=== PATIENT | female | born 1975 | race Caucasian/White ===

== ENCOUNTER 2017-08-16 22:56 | Emergency (ER) | payer MEDICARE, OTHER ==
[~2017-08-16] VITALS: Ht 157.5 cm; Wt 61.2 kg
[2017-08-17] MEDS ORDERED: KETOROLAC 60 MG/2 ML VIAL. IM ONE (00:30)
--- NOTE | 2017-08-17 00:53 | PHYS DOC ---
Adult General Chief Complaint Chief Complaint: UPPER EXTREMITY PAIN HPI HPI 42-year-old female presents the emergency department complaining of left shoulder pain. Patient states she fell and "jammed " her shoulder. There is no swelling or deformity. Patient takes [place] at home for chronic pain. She does not take any anticoagulants nor does she have any chronic bone or bleeding problems. No other injuries Review of Systems Review of Systems Constitutional: Denies fever or chills [] Eyes: Denies change in visual acuity, redness, or eye pain [] HENT: Denies nasal congestion or sore throat [] Respiratory: Denies cough or shortness of breath [] Cardiovascular: No additional information not addressed in HPI [] GI: Denies abdominal pain, nausea, vomiting, bloody stools or diarrhea [] : Denies dysuria or hematuria [] Musculoskeletal: Denies back pain or joint pain [] Integument: Denies rash or skin lesions [] Neurologic: Denies headache, focal weakness or sensory changes [] Endocrine: Denies polyuria or polydipsia [] All other systems were reviewed and found to be within normal limits, except as documented in this note. Current Medications Current Medications Current Medications Medications (Trade) Dose Ordered Sig/Haley Start Time Stop Time Status Last Admin Dose Admin Ketorolac Tromethamine (Toradol) 60 mg 1X ONCE 08/17/17 00:30 08/17/17 00:31 DC 08/17/17 00:35 60 MG Allergies Allergies Allergies Coded Allergies Type Severity Reaction Last Updated Verified doxycycline Allergy Unknown 08/17/17 Yes fentanyl Allergy Unknown 08/17/17 Yes latex Allergy Unknown 08/17/17 Yes lidocaine Allergy Unknown 08/17/17 Yes morphine Allergy Unknown 08/17/17 Yes nickel Allergy Unknown 08/17/17 Yes Physical Exam Physical Exam Well-appearing patient no acute distress. Range of motion left shoulder limited by pain. Soft tissue tenderness in the left shoulder distribution. No before meals tenderness no bony tenderness humeral head appears to be glenoid fossa clinically. No bony tenderness of the humerus elbow or forearm. No elbow effusion and no skin changes. Remainder of exam is benign Constitutional: Well developed, well nourished, no acute distress, non-toxic appearance. [] HENT: Normocephalic, atraumatic, bilateral external ears normal, oropharynx moist, no oral exudates, nose normal. [] Eyes: PERRLA, EOMI, conjunctiva normal, no discharge. [] Neck: Normal range of motion, no tenderness, supple, no stridor. [] Cardiovascular:Heart rate regular rhythm, no murmur [] Lungs & Thorax: Bilateral breath sounds clear to auscultation [] Abdomen: Bowel sounds normal, soft, no tenderness, no masses, no pulsatile masses. [] Skin: Warm, dry, no erythema, no rash. [] Back: No tenderness, no CVA tenderness. [] Extremities: No tenderness, no cyanosis, no clubbing, ROM intact, no edema. [] Neurologic: Alert and oriented X 3, normal motor function, normal sensory function, no focal deficits noted. [] Psychologic: Affect normal, judgement normal, mood normal. [] EKG EKG [] Radiology/Procedures Radiology/Procedures X-ray left elbow no acute disease interpreted by me X-ray left humerus no acute disease interpreted by me [] Course & Med Decision Making Course & Med Decision Making Pertinent Labs and Imaging studies reviewed. (See chart for details) Signs and symptoms consistent with soft tissue injury left shoulder. X-ray humerus and elbow unremarkable. Patient with no soft tissue swelling or deformity. Soft compartments and neurovascularly intact distally. Patient aware of suspicion of rotator cuff injury as well as the possibility of a nondisplaced fracture that this appears less likely clinically. Patient were critical importance of close follow-up with her primary care doctor for reevaluation and referral to orthopedics as needed. She will wear sling for comfort rest ice and elevate take anti-inflammatory medications and her narcotic home pain regimen as needed. [] Dragon Disclaimer Dragon Disclaimer This electronic medical record was generated, in whole or in part, using a voice recognition dictation system. Departure Departure: Impression: Primary Impression: Injury of left shoulder and upper arm Additional Impression: Injury of left rotator cuff Disposition: 01 HOME, SELF-CARE Condition: IMPROVED Referrals: NON,STAFF (PCP) Patient Instructions: Rotator Cuff Injury Additional Instructions: It appears that you've suffered a soft tissue injury of your left shoulder. Wear sling as needed for comfort. Avoid strenuous use of the shoulder until it' s feeling better. Remove the sling several times a day for full range of motion exercises. Take ibuprofen 800 mg every 6 hours as needed for discomfort and use your narcotic pain control regimen as needed for breakthrough pain as previously prescribed. Be aware of the possibility of a nondisplaced fracture not visible on x-ray. Follow-up with your doctor in several days for reevaluation and referral to orthopedics as needed. Problem Qualifiers JAELYN CARCAMO MD Aug 17, 2017 00:53
[2017-08-17 01:08] VITALS: BP 145/84
--- NOTE | 2017-08-17 07:48 | RAD ---
EXAM: 1. Left humerus 2 views. 2. Left elbow 3 views. HISTORY: Fall with left humeral and elbow pain. COMPARISON: None. FINDINGS: No fractures are appreciated in the left humerus. Acromioclavicular and glenohumeral alignment appear maintained. No fractures are appreciated at the left elbow. Joint spaces and alignment are maintained. There is no joint effusion. IMPRESSION: 1. No fracture or malalignment.
== END 2017-08-17 01:08 | disposition home or self-care (01) ==
LOC: ER 22:56
DX: S46.092A Other injury of muscle(s) and tendon(s) of the rotator cuff of left shoulder, initial encounter (principal); G89.29 Other chronic pain; Z88.5 Allergy status to narcotic agent; Z88.8 Allergy status to other drugs, medicaments and biological substances; Z88.4 Allergy status to anesthetic agent; Z88.1 Allergy status to other antibiotic agents; Z91.040 Latex allergy status; W19.XXXA Unspecified fall, initial encounter; Y93.89 Activity, other specified; Y92.89 Other specified places as the place of occurrence of the external cause; Y99.8 Other external cause status
CPT/HCPCS: 73060; 73080; 96372; 99284; J1885

== ENCOUNTER 2017-11-08 22:28 | Emergency (ER) | payer MEDICARE, OTHER ==
[~2017-11-08] VITALS: Ht 167.6 cm; Wt 77.1 kg
--- NOTE | 2017-11-08 23:14 | ED.ADGEN ---
Past History Past Medical History: GERD, Other Past Surgical History: Appendectomy, Cholecystectomy, Hysterectomy Adult General Chief Complaint Chief Complaint Right wrist injury HPI HPI Patient is a 42 year old right-handed fever presents with right proximal wrist pain and palmar hand pain after tripping over a metal post and falling on an outstretched right hand. Injury occurred 4 hours prior to ED arrival. Pain is moderate, worse with palpation and range of motion. No other acute injury or complaints. Previous carpal tunnel release surgery of right hand.[] Review of Systems Review of Systems Review symptoms as per history of present illness. All other review symptoms are negative. All other systems were reviewed and found to be within normal limits, except as documented in this note. Current Medications Current Medications Current Medications Medications (Trade) Dose Ordered Sig/Haley Start Time Stop Time Status Last Admin Dose Admin Ibuprofen (Motrin) 600 mg 1X ONCE 11/08/17 23:55 11/08/17 23:56 DC 11/08/17 23:45 600 MG Allergies Allergies Allergies Coded Allergies Type Severity Reaction Last Updated Verified doxycycline Allergy Unknown 08/17/17 Yes fentanyl Allergy Unknown 08/17/17 Yes latex Allergy Unknown 08/17/17 Yes lidocaine Allergy Unknown 08/17/17 Yes morphine Allergy Unknown 08/17/17 Yes nickel Allergy Unknown 08/17/17 Yes Physical Exam Physical Exam Constitutional: Well developed, well nourished, no acute distress, non-toxic appearance. [] HENT: Normocephalic, atraumatic, bilateral external ears normal, oropharynx moist, no oral exudates, nose normal. [] Extremities: Right wrist, no bruising, swelling, abrasions or deformities. Proximal wrist pain, tenderness and palmar hand pain. [] Neurologic: Alert and oriented X 3, right upper ext, no motor weakness or loss of sensation. [] Psychologic: Affect normal, judgement normal, mood normal. [] Current Patient Data Vital Signs Vital Signs Date Time Temp Pulse Resp B/P (MAP) Pulse Ox O2 Delivery O2 Flow Rate FiO2 11/08/17 23:21 98.1 90 20 97 Room Air EKG EKG [] Radiology/Procedures Radiology/Procedures [R wrist XR: No obvious displaced fracture] Course & Med Decision Making Course & Med Decision Making Pertinent Labs and Imaging studies reviewed. (See chart for details) [No obvious fracture on x-ray. No tenderness over her anatomical snuffbox. Discussed with the patient possibility of subtle nondisplaced fracture. Patient provided wrist splint. Recommendations are supportive care with PCP/orthopedic follow-up.] Final Impression Final Impression [1 right wrist injury] Problems: Dragon Disclaimer Dragon Disclaimer This electronic medical record was generated, in whole or in part, using a voice recognition dictation system. LUIS MANUEL OLIVIA DO November 08, 2017 23:14
[2017-11-08 23:21] VITALS: BP 123/80
[2017-11-08] MEDS ORDERED: IBUPROFEN 600 MG TABLET. PO ONE (23:55)
--- NOTE | 2017-11-09 09:03 | RAD ---
EXAM: Right wrist, 3 views. HISTORY: Fall. COMPARISON: None. FINDINGS: Frontal, lateral and oblique views of the right wrist are obtained. There is linear sclerosis within the distal radial metaphysis due to a healed fracture. There are track palomares related to prior fixation instrumentation within the distal radius. There is a chronic ununited ulnar styloid fracture. There is a corticated ossicle along the dorsal aspect of the carpal bones, likely due to a chronic ununited triquetral fracture. There is no acute fracture, dislocation or subluxation. IMPRESSION: 1. Healed distal radial metaphyseal fracture with prior fixation instrumentation explantation. 2. 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 Electronically signed by: Rajwinder Ocasio MD (11/09/2017 9:00 AM) [facility]
== END 2017-11-08 23:51 | disposition home or self-care (01) ==
LOC: ER 22:28
DX: S69.91XA Unspecified injury of right wrist, hand and finger(s), initial encounter (principal); K21.9 Gastro-esophageal reflux disease without esophagitis; Z88.1 Allergy status to other antibiotic agents; Z88.8 Allergy status to other drugs, medicaments and biological substances; Z88.5 Allergy status to narcotic agent; Z88.4 Allergy status to anesthetic agent; Z91.041 Radiographic dye allergy status; W18.09XA Striking against other object with subsequent fall, initial encounter; Y93.89 Activity, other specified; Y99.8 Other external cause status; Y92.89 Other specified places as the place of occurrence of the external cause
CPT/HCPCS: 29125; 73110; 99284

== ENCOUNTER → 2017-11-11 | Outpatient (CLI) | payer MEDICARE, OTHER ==
[2017-11-08 23:21] VITALS: BP 123/80
[2017-11-11] MEDS: BARIUM SULFATE 60% 355 ML SUSP PO ONE (09:49)
--- NOTE | 2017-11-11 16:45 | RAD ---
EXAM: Small bowel follow-through exam. HISTORY: Crohn's disease. TECHNIQUE: A head of merchandise buying image of the abdomen was obtained. Serial overhead images of the abdomen were then obtained following the oral administration of barium contrast the final image was delayed 160 minutes due to the inability the patient to remain in the department at a standard imaging interval. COMPARISON: CT dated 07/28/2012. FINDINGS: The head of merchandise buying image of the abdomen demonstrates a moderate amount of colonic stool. There is no abnormally dilated air-filled loop of bowel. There are cholecystectomy clips. The images obtained following the oral administration of contrast demonstrate a normal-appearing stomach and normal-appearing loops of small bowel. There is no abnormal small bowel dilatation, narrowing or an abnormal small bowel mucosal folding pattern. The small bowel transit time is greater than 1 hour and less than 2 hours and 40 minutes. The patient was unable to remain in the department for imaging between 1 and 2 hours. The final image demonstrates transit of contrast from the small bowel into the proximal and mid colon. There is no evidence of bowel fixation. IMPRESSION: 1. No suspicious small bowel or colonic lesion to suggest active colitis. 2. Limited evaluation of a small bowel transit time due to the inability of the patient to remain in the department at standard imaging intervals. Electronically signed by: Rajwinder Ocasio MD (11/11/2017 4:43 PM) [facility]
== END | disposition home or self-care (01) ==
LOC: RAD 09:11
PROVIDERS: ATTEND Internal Medicine Gastroenterology
DX: K50.90 Crohn's disease, unspecified, without complications (principal); F17.200 Nicotine dependence, unspecified, uncomplicated
CPT/HCPCS: 74250

== ENCOUNTER 2017-11-23 20:35 | Emergency (ER) | payer MEDICARE, OTHER ==
[~2017-11-23] VITALS: Ht 170.2 cm; Wt 83.9 kg
[2017-11-23 20:49] VITALS: BP 114/85
--- NOTE | 2017-11-23 21:09 | PHYS DOC ---
Past History Past Medical History: Other Past Surgical History: Appendectomy, Cholecystectomy, Hysterectomy, Tonsillectomy Alcohol Use: None Drug Use: None Adult General Chief Complaint Chief Complaint: BACK PAIN OR INJURY HPI HPI Patient is a 42 year old female who presents with complaint of low back pain for 2 days. The patient states that she started having back pain after she bent over to pick something up off the ground when she felt a twinge in her low back. Patient states that since she has been having low back spasms and pain radiating into the left lower extremity. Patient states she's had history of chronic low back pain with sciatica. The patient states that she has been trying heating pad and has been trying both hydrocodone and oxycodone which are prescribed to her for treatment of chronic pain. Patient states that despite treatment she has not received any significant improvement. Patient denies any loss of bowel or bladder control, saddle anesthesia, or foot drop. Patient states that she has been treated with steroids in the past which seemed to help resolve previous exacerbations. Patient currently on Celebrex as an anti- inflammatory. Patient denies any urinary symptoms or fever. Review of Systems Review of Systems Constitutional: Denies fever or chills [] Eyes: Denies change in visual acuity, redness, or eye pain [] HENT: Denies nasal congestion or sore throat [] Respiratory: Denies cough or shortness of breath [] Cardiovascular: Denies chest pain or edema[] GI: Denies abdominal pain, nausea, vomiting, bloody stools or diarrhea [] : Denies dysuria or hematuria [] Musculoskeletal: Back pain[] Integument: Denies rash or skin lesions [] Neurologic: Numbness in left lower extremity, denies weakness[] All other systems were reviewed and found to be within normal limits, except as documented in this note. Allergies Allergies Allergies Coded Allergies Type Severity Reaction Last Updated Verified doxycycline Allergy Unknown 08/17/17 Yes fentanyl Allergy Unknown 08/17/17 Yes latex Allergy Unknown 08/17/17 Yes lidocaine Allergy Unknown 08/17/17 Yes morphine Allergy Unknown 08/17/17 Yes nickel Allergy Unknown 08/17/17 Yes Physical Exam Physical Exam Constitutional: Alert, afebrile, appears in moderate discomfort. [] HENT: Normocephalic, atraumatic, bilateral external ears normal, oropharynx moist, no oral exudates, nose normal. [] Eyes: PERRLA, EOMI, conjunctiva normal, no discharge. [] Neck: Normal range of motion, no tenderness, supple, no stridor. [] Cardiovascular:Heart rate regular rhythm, no murmur [] Lungs & Thorax: Bilateral breath sounds clear to auscultation [] Abdomen: Bowel sounds normal, soft, no tenderness, no masses, no pulsatile masses. [] Skin: Warm, dry, no erythema, no rash. [] Back: No midline tenderness, left lower lumbar paraspinous muscle tenderness to palpation, positive straight leg test and left lower extremity. [] Extremities: No tenderness, no cyanosis, no clubbing, ROM intact, no edema. [] Neurologic: Alert and oriented X 3, normal motor function, normal sensory function, no focal deficits noted. [] Current Patient Data Vital Signs Vital Signs Date Time Temp Pulse Resp B/P (MAP) Pulse Ox O2 Delivery O2 Flow Rate FiO2 11/23/17 20:49 98.2 96 20 96 Room Air Lab Results Laboratory Tests Test 11/23/17 20:50 Urine Collection Type Unknown Urine Color Yellow Urine Clarity Clear Urine pH 6.0 Urine Specific [place] 1.015 Urine Protein Neg Urine Glucose (UA) Neg mg/dL Urine Ketones (Stick) Neg mg/dL Urine Blood Neg Urine Nitrite Neg Urine Bilirubin Neg Urine Urobilinogen Dipstick 0.2 mg/dL Urine Leukocyte Esterase Neg Urine RBC Occ /HPF Urine WBC 1-4 /HPF Urine Squamous Epithelial Cells Mod /LPF Urine Bacteria Few /HPF Urine Mucus Slight /LPF Current Medications Medications (Trade) Dose Ordered Sig/Haley Route PRN Reason Start Time Stop Time Status Last Admin Dose Admin Dexamethasone Sodium Phosphate (Decadron) 10 mg 1X ONCE PO 11/23/17 21:15 11/23/17 21:16 DC 11/23/17 21:15 Hydromorphone HCl (Dilaudid) 1 mg 1X ONCE IM 11/23/17 21:15 11/23/17 21:16 DC 11/23/17 21:15 Dexamethasone (Decadron) 4 mg STK-MED ONCE .ROUTE 11/23/17 21:17 11/23/17 21:18 DC EKG EKG Not performed[] Radiology/Procedures Radiology/Procedures Not performed[] Course & Med Decision Making Course & Med Decision Making Pertinent Labs and Imaging studies reviewed. (See chart for details) Patient was given IM Dilaudid and oral Decadron in the emergency department. Patient's symptoms appear to be consistent with acute low back strain with sciatica symptoms. The patient will be continued on Medrol Dosepak and advised to continue with home pain medications. Patient displays no red flag symptoms warranting acute imaging at this time. Advised follow-up in one week with primary doctor for reevaluation if symptoms are not improving and to return emergency department for any worsening symptoms. Patient voiced understanding and in agreement with treatment plan. Dragon Disclaimer Dragon Disclaimer This electronic medical record was generated, in whole or in part, using a voice recognition dictation system. Departure Departure: Impression: Primary Impression: Low back pain Disposition: HOME, SELF-CARE Condition: IMPROVED Referrals: SONIDO WILLINGHAM MD (PCP) Patient Instructions: Back Pain, Adult, Sciatica Additional Instructions: Follow-up with your primary doctor in 5 days for reevaluation. Return to emergency department for any worsening symptoms. Scripts Methylprednisolone (MEDROL) 4 Mg Tab.ds.pk 1 PKG PO UD, #1 PKG Prov: EUGENE SANCHEZ MD 11/23/17 Problem Qualifiers Primary Impression: Low back pain Chronicity: acute Back pain laterality: left Sciatica presence: with sciatica Sciatica laterality: sciatica of left side Qualified Codes: M54.42 - Lumbago with sciatica, left side EUGENE SANCHEZ MD November 23, 2017 21:09
[2017-11-23] MEDS ORDERED: HYDROmorphone PF 1 MG/ML DISP.SYRIN IM ONE (21:15)
[2017-11-23] MEDS ORDERED: DEXAMETHASONE SOD PHOS 10 MG/ML VIAL PO ONE (21:15)
[2017-11-23] MEDS ORDERED: DEXAMETHASONE 4 MG TABLET ONE (21:17)
[2017-11-23 21:32] LABS: BACTERIA,URINE FEW /HPF (0-FEW); BILIRUBIN,URINE NEG (NEG); CLARITY,URINE CLEAR; COLOR,URINE YELLOW; GLUCOSE,URINE NEG (NEG); NITRITE,URINE NEG (NEG); RBC,URINE OCC /HPF (0-2); SQUAMOUS EPITHELIAL CELL,UR MOD /LPF; UROBILINOGEN,URINE 0.2 mg/dL (0.2 mg/dL)
[2017-11-23] MEDS ORDERED: METH4TAB2 PO (21:57)
== END 2017-11-23 22:03 | disposition home or self-care (01) ==
LOC: ER 20:35
DX: M54.42 Lumbago with sciatica, left side (principal); G89.29 Other chronic pain; Z90.49 Acquired absence of other specified parts of digestive tract; Z90.710 Acquired absence of both cervix and uterus; Z88.5 Allergy status to narcotic agent; Z88.8 Allergy status to other drugs, medicaments and biological substances; Z88.4 Allergy status to anesthetic agent; Z88.1 Allergy status to other antibiotic agents; Z91.040 Latex allergy status
CPT/HCPCS: 81001; 96372; 99283; J1170; J1100

== ENCOUNTER 2018-03-21 13:51 | Emergency (ER) | payer MEDICARE, OTHER ==
[~2018-03-21] VITALS: Ht 157.5 cm; Wt 62.1 kg
[~2018-03-21 13:51] MED LIST: METH4TAB2 PO
--- NOTE | 2018-03-21 14:53 | PHYS DOC ---
Past History Past Medical History: Migraines, Other Past Surgical History: Appendectomy, Cholecystectomy, Hysterectomy, Tonsillectomy, Other Alcohol Use: None Drug Use: None Adult General Chief Complaint Chief Complaint: MECHANICAL FALL HPI HPI 42-year-old female presents after mechanical fall. The patient was walking along and her right knee buckled. She is had a lot of trouble with this knee and has had surgery in the past. As she went down she stuck out her right arm catch herself. She fell onto concrete. She now has pain in the right wrist elbow and shoulder. She did not hit her head or lose consciousness. She is very concerned about potential injury to the right wrist because she has had surgery on the wrist in the past. Review of Systems Review of Systems Constitutional: Denies fever or chills [] Eyes: Denies change in visual acuity, redness, or eye pain [] HENT: Denies nasal congestion or sore throat [] Respiratory: Denies cough or shortness of breath [] Cardiovascular: No additional information not addressed in HPI [] GI: Denies abdominal pain, nausea, vomiting, bloody stools or diarrhea [] : Denies dysuria or hematuria [] Musculoskeletal: Right upper extremity pain[] Integument: Denies rash or skin lesions [] Neurologic: Denies headache, focal weakness or sensory changes [] Endocrine: Denies polyuria or polydipsia [] All other systems were reviewed and found to be within normal limits, except as documented in this note. Allergies Allergies Allergies Coded Allergies Type Severity Reaction Last Updated Verified doxycycline Allergy Unknown 08/17/17 Yes fentanyl Allergy Unknown 08/17/17 Yes latex Allergy Unknown 08/17/17 Yes lidocaine Allergy Unknown 08/17/17 Yes morphine Allergy Unknown 08/17/17 Yes nickel Allergy Unknown 08/17/17 Yes Physical Exam Physical Exam Constitutional: Well developed, well nourished, no acute distress, non-toxic appearance. [] HENT: Normocephalic, atraumatic, bilateral external ears normal, oropharynx moist, no oral exudates, nose normal. [] Eyes: PERRLA, EOMI, conjunctiva normal, no discharge. [] Neck: Normal range of motion, no tenderness, supple, no stridor. [] Cardiovascular:Heart rate regular rhythm, no murmur [] Lungs & Thorax: Bilateral breath sounds clear to auscultation [] Abdomen: Bowel sounds normal, soft, no tenderness, no masses, no pulsatile masses. [] Skin: Warm, dry, no erythema, no rash. [] Back: No tenderness, no CVA tenderness. [] Extremities: Pain with palpation of the right wrist, elbow, and shoulder. No obvious deformity. Minimal swelling of the medial right wrist[] Neurologic: Alert and oriented X 3, normal motor function, normal sensory function, no focal deficits noted. [] Psychologic: Affect normal, judgement normal, mood normal. [] Current Patient Data Vital Signs Vital Signs Date Time Temp Pulse Resp B/P (MAP) Pulse Ox O2 Delivery O2 Flow Rate FiO2 03/21/18 14:00 98.7 79 16 96 Room Air EKG EKG [] Radiology/Procedures Radiology/Procedures [] Impressions: EXAM: Right forearm, 2 views. HISTORY: Fall. COMPARISON: None. FINDINGS: Frontal and lateral views of the right forearm are obtained. There is deformity of the distal radial metaphysis with sclerosis and areas of lucency likely due to a healed distal radial metaphyseal fracture status post fixation instrumentation removal. No acute fracture is seen. IMPRESSION: Suspected healed distal radial metaphyseal fracture. Electronically signed by: Rajwinder Muñoz MD (03/21/2018 3:15 PM) [facility] DICTATED AND SIGNED BY: RAJWINDER MUÑOZ MD DATE: 03/21/18 1514 CC: LUIS MANUEL CASANOVA DO; SONIDO WILLINGHAM MD ~ Right wrist, 3 views, 03/21/2018: HISTORY: Fall, pain Comparison is made to a study from 11/08/2017. There are old pin tracks in the distal radius. There is unchanged trabecular deformity involving the distal radius likely on a posttraumatic basis. There is an old nonunited ulnar styloid fracture. No new fracture or dislocation is evident. There is mild degenerative change at the radiocarpal articulation. IMPRESSION: 1. Old posttraumatic and postsurgical findings as described above. 2. No new right wrist abnormality is detected. Right clavicle, 2 views, 03/21/2018: HISTORY: Fall, pain No fracture or bony abnormality is detected. IMPRESSION: Normal right clavicle. Right shoulder, 3 views, 03/21/2018: HISTORY: Fall, pain No fracture or dislocation is identified. The periarticular soft tissues are unremarkable. IMPRESSION: No acute bony abnormality is detected. Electronically signed by: Rolando Santamaria MD (03/21/2018 2:56 PM) [facility] Course & Med Decision Making Course & Med Decision Making Pertinent Labs and Imaging studies reviewed. (See chart for details) The patient's x-rays are negative for dislocation or acute fracture. She has several old fractures. I will advise that she continue anti-inflammatory medication such as ibuprofen TID. She is stable for discharge at this time. [] Dragon Disclaimer Dragon Disclaimer This electronic medical record was generated, in whole or in part, using a voice recognition dictation system. Departure Departure: Referrals: SONIDO WILLINGHAM MD (PCP) LUIS MANUEL CASANOVA DO Mar 21, 2018 14:53
--- NOTE | 2018-03-21 15:00 | RAD ---
Right wrist, 3 views, 03/21/2018: HISTORY: Fall, pain Comparison is made to a study from 11/08/2017. There are old pin tracks in the distal radius. There is unchanged trabecular deformity involving the distal radius likely on a posttraumatic basis. There is an old nonunited ulnar styloid fracture. No new fracture or dislocation is evident. There is mild degenerative change at the radiocarpal articulation. IMPRESSION: 1. Old posttraumatic and postsurgical findings as described above. 2. No new right wrist abnormality is detected. Right clavicle, 2 views, 03/21/2018: HISTORY: Fall, pain No fracture or bony abnormality is detected. IMPRESSION: Normal right clavicle. Right shoulder, 3 views, 03/21/2018: HISTORY: Fall, pain No fracture or dislocation is identified. The periarticular soft tissues are unremarkable. IMPRESSION: No acute bony abnormality is detected. Electronically signed by: Rolando Santamaria MD (03/21/2018 2:56 PM) [facility]
[2018-03-21 15:03] VITALS: BP 100/77
--- NOTE | 2018-03-21 15:18 | RAD ---
EXAM: Right forearm, 2 views. HISTORY: Fall. COMPARISON: None. FINDINGS: Frontal and lateral views of the right forearm are obtained. There is deformity of the distal radial metaphysis with sclerosis and areas of lucency likely due to a healed distal radial metaphyseal fracture status post fixation instrumentation removal. No acute fracture is seen. IMPRESSION: Suspected healed distal radial metaphyseal fracture. Electronically signed by: Rajwinder Ocasio MD (03/21/2018 3:15 PM) [id number]
== END 2018-03-21 16:05 | disposition home or self-care (01) ==
LOC: ER 13:51
DX: M25.531 Pain in right wrist (principal); M25.521 Pain in right elbow; M25.511 Pain in right shoulder; G43.909 Migraine, unspecified, not intractable, without status migrainosus; Z88.1 Allergy status to other antibiotic agents; Z88.4 Allergy status to anesthetic agent; Z88.5 Allergy status to narcotic agent; Z88.8 Allergy status to other drugs, medicaments and biological substances; Z91.040 Latex allergy status; W19.XXXA Unspecified fall, initial encounter; Y93.01 Activity, walking, marching and hiking; Y92.89 Other specified places as the place of occurrence of the external cause; Y99.8 Other external cause status
CPT/HCPCS: 73000; 73030; 73090; 73110; 99284

== ENCOUNTER 2018-05-16 00:37 | Emergency (ER) | payer MEDICARE, OTHER ==
[~2018-05-16] VITALS: Ht 157.5 cm; Wt 66.7 kg
[2018-05-16 00:48] VITALS: BP 121/90
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
[2018-05-16] MEDS ORDERED: DICL50TA4 PO (01:16)
--- NOTE | 2018-05-16 01:18 | RAD ---
INDICATION: Chronic foot pain, severe pain to right foot with pressure while walking COMPARISON: None. IMPRESSION: Right foot: 3 views obtained. No definite acute fracture or dislocation. Electronically signed by: Blayne Andino MD (05/16/2018 1:15 AM) [facility]
== END 2018-05-16 01:25 | disposition home or self-care (01) ==
LOC: ER 00:37
DX: G89.29 Other chronic pain (principal); M79.671 Pain in right foot; G43.909 Migraine, unspecified, not intractable, without status migrainosus; Z88.1 Allergy status to other antibiotic agents; Z91.040 Latex allergy status; Z88.4 Allergy status to anesthetic agent; Z88.5 Allergy status to narcotic agent; Z88.8 Allergy status to other drugs, medicaments and biological substances
CPT/HCPCS: 73630; 99284

== ENCOUNTER 2018-05-27 22:45 | Emergency (ER) | payer MEDICARE, OTHER ==
[~2018-05-27] VITALS: Ht 157.5 cm; Wt 65.8 kg
[~2018-05-27 22:45] MED LIST changes: +DICL50TA4 PO
[2018-05-27] MEDS ORDERED: PRED20TA PO (23:32)
[2018-05-27] MEDS ORDERED: AMOX1TAB61 PO (23:32)
--- NOTE | 2018-05-27 23:34 | PHYS DOC ---
Adult General Chief Complaint Chief Complaint cough HPI HPI 6 years old female presented to the emergency department with cough, wheezing, sore throat for 4 days associate with fever yesterday exertional shortness of breath no chest Review of Systems Review of Systems Constitutional: Denies fever or chills [] Eyes: Denies change in visual acuity, redness, or eye pain [] HENT: Denies nasal congestion or sore throat [] Respiratory: Positive for cough or shortness of breath [] Cardiovascular: No additional information not addressed in HPI [] GI: Denies abdominal pain, nausea, vomiting, bloody stools or diarrhea [] : Denies dysuria or hematuria [] Musculoskeletal: Denies back pain or joint pain [] Integument: Denies rash or skin lesions [] Neurologic: Denies headache, focal weakness or sensory changes [] Endocrine: Denies polyuria or polydipsia [] All other systems were reviewed and found to be within normal limits, except as documented in this note. Current Medications Current Medications Current Medications Medications (Trade) Dose Ordered Sig/Haley Start Time Stop Time Status Last Admin Dose Admin Albuterol Sulfate (Ventolin) 2.5 mg 1X ONCE 05/27/18 23:30 05/27/18 23:31 UNV Ceftriaxone Sodium (Rocephin Im) 1 gm 1X ONCE 05/27/18 23:30 05/27/18 23:31 UNV Dexamethasone Sodium Phosphate (Decadron) 4 mg 1X ONCE 05/27/18 23:30 05/27/18 23:31 UNV Allergies Allergies Allergies Coded Allergies Type Severity Reaction Last Updated Verified doxycycline Allergy Unknown 08/17/17 Yes fentanyl Allergy Unknown 08/17/17 Yes latex Allergy Unknown 08/17/17 Yes lidocaine Allergy Unknown 08/17/17 Yes morphine Allergy Unknown 08/17/17 Yes nickel Allergy Unknown 08/17/17 Yes Physical Exam Physical Exam Constitutional: Well developed, well nourished, no acute distress, non-toxic appearance. [] HENT: Normocephalic, atraumatic, bilateral external ears normal, oropharynx moist, no oral exudates, nose normal. [] Eyes: PERRLA, EOMI, conjunctiva normal, no discharge. [] Neck: Normal range of motion, no tenderness, supple, no stridor. [] Cardiovascular:Heart rate regular rhythm, no murmur [] Lungs & Thorax: Diminished and wheezing to auscultation [] Abdomen: Bowel sounds normal, soft, no tenderness, no masses, no pulsatile masses. [] Skin: Warm, dry, no erythema, no rash. [] Back: No tenderness, no CVA tenderness. [] Extremities: No tenderness, no cyanosis, no clubbing, ROM intact, no edema. [] Neurologic: Alert and oriented X 3, normal motor function, normal sensory function, no focal deficits noted. [] Psychologic: Affect normal, judgement normal, mood normal. [] EKG EKG [] Radiology/Procedures Radiology/Procedures [] Course & Med Decision Making Course & Med Decision Making Pertinent Labs and Imaging studies reviewed. (See chart for details) [] Final Impression Final Impression [] Problems: (1) Bronchitis Dragon Disclaimer Dragon Disclaimer This electronic medical record was generated, in whole or in part, using a voice recognition dictation system. YOSELYN MORE MD May 27, 2018 23:34
[2018-05-27] MEDS ORDERED: DEXAMETHASONE SOD PHOS 4 MG/ML VIAL IV ONE (23:45)
[2018-05-27] MEDS ORDERED: cefTRIAXone IM 1 GM VIAL IM ONE (23:45)
[2018-05-27] MEDS ORDERED: ALBUTEROL SULFATE 2.5 MG/3 ML NEBU. NEB ONE (23:45)
[2018-05-27] MEDS ORDERED: LIDOCAINE 1% Multi-Dose 20 ML VIAL. ONE (23:53)
[2018-05-28 00:35] VITALS: BP 115/68
== END 2018-05-28 00:36 | disposition home or self-care (01) ==
LOC: ER 22:45
DX: J40 Bronchitis, not specified as acute or chronic (principal); Z88.1 Allergy status to other antibiotic agents; Z91.040 Latex allergy status; Z88.4 Allergy status to anesthetic agent; Z88.5 Allergy status to narcotic agent; Z88.8 Allergy status to other drugs, medicaments and biological substances
CPT/HCPCS: 94640; 96372; 96374; 99283; J0696; J1100; J7613

== ENCOUNTER 2018-06-27 16:01 | Emergency (ER) | payer MEDICARE, OTHER ==
[~2018-06-27] VITALS: Ht 157.5 cm; Wt 66.2 kg
[~2018-06-27 16:01] MED LIST changes: +AMOX1TAB61 PO; +PRED20TA PO
--- NOTE | 2018-06-27 16:52 | PHYS DOC ---
Past History Past Medical History: Migraines, Other Past Surgical History: Appendectomy, Cholecystectomy, Hysterectomy, Tonsillectomy, Other Alcohol Use: None Drug Use: None Adult General Chief Complaint Chief Complaint: MULTIPLE COMPLAINTS [facility] Patient is a 42-year-old female who presents with complaint of right lower abdominal pain that started a few days ago. Patient states that she thinks she is having a flare of her Crohn's disease again. She rates her pain to be about a 7 to an 8 out of 10. She states that she has been having both vomiting and diarrhea. She states usually she has upwards of 15 episodes of diarrhea daily with her Crohn's flareups but she states that her last bowel movement today was this morning. She denies any fever, chest pain or shortness of breath. She states that nothing is improving her symptoms. Review of Systems Review of Systems Constitutional: Denies fever or chills [] Respiratory: Denies cough or shortness of breath [] Cardiovascular: No additional information not addressed in HPI [] GI: Complains of abdominal pain with nausea, vomiting and diarrhea [] Musculoskeletal: Complains of back pain [] All other systems were reviewed and found to be within normal limits, except as documented in this note. Allergies Allergies Allergies Coded Allergies Type Severity Reaction Last Updated Verified doxycycline Allergy Unknown 08/17/17 Yes fentanyl Allergy Unknown 08/17/17 Yes latex Allergy Unknown 08/17/17 Yes lidocaine Allergy Unknown 08/17/17 Yes morphine Allergy Unknown 08/17/17 Yes nickel Allergy Unknown 08/17/17 Yes Physical Exam Physical Exam Constitutional: Well developed, well nourished, no acute distress, non-toxic appearance. [] HENT: Normocephalic, atraumatic, bilateral external ears normal, oropharynx moist, no oral exudates, nose normal. [] Eyes: PERRLA, EOMI, conjunctiva normal, no discharge. [] Neck: Normal range of motion, no tenderness, supple, no stridor. [] Cardiovascular: Regular rate and rhythm [] Lungs & Thorax: Bilateral breath sounds clear to auscultation [] Abdomen: Bowel sounds diminished, soft, with diffuse tenderness, greatest in the right lower abdomen. [] Skin: Warm, dry, no erythema, no rash. [] Extremities: No tenderness, no cyanosis, no clubbing, ROM intact, no edema. [] Neurologic: Alert and oriented X 3, no focal deficits noted. [] Current Patient Data Vital Signs Vital Signs Date Time Temp Pulse Resp B/P (MAP) Pulse Ox O2 Delivery O2 Flow Rate FiO2 06/27/18 16:15 98.2 83 18 99 Room Air EKG EKG [] Radiology/Procedures Radiology/Procedures [] Impressions: CT scan abdomen and pelvis with contrast 06/27/2018 CLINICAL HISTORY: Diffuse abdominal pain is worsening. TECHNIQUE: After the intravenous administration of 75 cc of Omnipaque 300, contiguous, 5 mm axial sections were obtained through abdomen and pelvis. One or more of the following individualized dose reduction techniques were utilized for this study: 1. Automated exposure control. 2. Adjustment of the mA and/or kV according to patient size. 3. Use of iterative reconstruction technique. FINDINGS: Comparison study is dated 07/28/2012. Images through the lung bases demonstrate minimal dependent subsegmental atelectasis bilaterally. The liver, spleen, pancreas, adrenal glands and kidneys are within normal limits. The abdominal aorta tapers normally. Mild atherosclerotic calcification of the abdominal aorta is seen. Surgical clips are seen within the gallbladder fossa consistent with a cholecystectomy. No free fluid or free air is seen within the abdomen. There is no evidence of bowel obstruction. Surgical clips are seen medial to the cecum consistent with an appendectomy. Images through the pelvis demonstrate the urinary bladder distended with urine. The patient is post hysterectomy. No adnexal mass is seen. No free fluid is noted. Very mild S-shaped curvature of the thoracolumbar spine is seen. Degenerative changes are seen involving the lower thoracic and mid and lower lumbar spine and both hips. IMPRESSION: No acute abnormality is seen. Electronically signed by: Rg Jurado MD (06/27/2018 7:09 PM) [facility] DICTATED AND SIGNED BY: RG JURADO MD DATE: 06/27/18 190 CC: DELIO DALY Jr. DO; LUIS MANUEL CASANOVA DO; PCP,UNKNOWN ~ Course & Med Decision Making Course & Med Decision Making Pertinent Labs and Imaging studies reviewed. (See chart for details) The patient's labs unremarkable. Her urine is unremarkable. The patient's CT of the abdomen and pelvis is unremarkable. There does not seem to be an obstruction. There is no obvious signs of inflammation. Patient is stable for discharge at this time. [] Dragon Disclaimer Dragon Disclaimer This electronic medical record was generated, in whole or in part, using a voice recognition dictation system. Departure Departure: Referrals: PCP,UNKNOWN (PCP) DELIO DALY Jr. DO Jun 27, 2018 16:52 LUIS MANUEL CASANOVA DO Jun 27, 2018 19:20
[2018-06-27 17:09] LABS: BACTERIA,URINE FEW /HPF (0-FEW); BILIRUBIN,URINE NEG (NEG); CLARITY,URINE CLEAR; COLOR,URINE YELLOW; GLUCOSE,URINE NEG (NEG); NITRITE,URINE NEG (NEG); RBC,URINE 0 /HPF (0-2); SQUAMOUS EPITHELIAL CELL,UR OCC /LPF; UROBILINOGEN,URINE 0.2 mg/dL (0.2 mg/dL)
[2018-06-27 17:48] LABS: BASO % 0 % (0-3); EOS # 0.6 x10^3/uL (0.0-0.7); EOS % 7 % (0-3); HEMATOCRIT 39.3 % (36.0-47.0); LYMPH # 3.3 x10^3/uL (1.0-4.8); LYMPH % 40 % (24-48); MEAN CORPUSCULAR HEMOGLOBIN 29 pg (25-35); MEAN CORPUSCULAR HGB CONC 33 g/dL (31-37); MEAN CORPUSCULAR VOLUME 87 fL (79-100); MONO # 0.5 x10^3/uL (0.0-1.1); MONO % 6 % (0-9); NEUT % 48 % (31-73); PLATELET COUNT 414 x10^3/uL (140-400); RED BLOOD COUNT 4.53 x10^6/uL (3.50-5.40); RED CELL DISTRIBUTION WIDTH 16.6 % (11.5-14.5); WHITE BLOOD COUNT 8.4 x10^3/uL (4.0-11.0)
[2018-06-27] MEDS: ONDANSETRON PF 4 MG/2 ML VIAL. IV ONE (17:53)
[2018-06-27] MEDS: BUTORPHANOL 2 MG VIAL. IV ONE (17:53)
[2018-06-27] MEDS: IV NORMAL SALINE 1,000ML 1,000 ML IV SCH (17:54)
[2018-06-27 18:01] VITALS: BP 133/87
[2018-06-27 18:07] LABS: ALBUMIN 3.5 g/dL (3.4-5.0); CALCIUM 8.8 mg/dL (8.5-10.1); CREATININE 0.7 mg/dL (0.6-1.0); GFR 92.7; POTASSIUM 4.4 mmol/L (3.5-5.1); TOTAL BILIRUBIN 0.1 mg/dL (0.2-1.0)
[2018-06-27] MEDS: IOHEXOL 300 MG/ML 75 ML VIAL. IV ONE (18:39)
--- NOTE | 2018-06-27 19:13 | RAD ---
CT scan abdomen and pelvis with contrast 06/27/2018 CLINICAL HISTORY: Diffuse abdominal pain is worsening. TECHNIQUE: After the intravenous administration of 75 cc of Omnipaque 300, contiguous, 5 mm axial sections were obtained through abdomen and pelvis. One or more of the following individualized dose reduction techniques were utilized for this study: 1. Automated exposure control. 2. Adjustment of the mA and/or kV according to patient size. 3. Use of iterative reconstruction technique. FINDINGS: Comparison study is dated 07/28/2012. Images through the lung bases demonstrate minimal dependent subsegmental atelectasis bilaterally. The liver, spleen, pancreas, adrenal glands and kidneys are within normal limits. The abdominal aorta tapers normally. Mild atherosclerotic calcification of the abdominal aorta is seen. Surgical clips are seen within the gallbladder fossa consistent with a cholecystectomy. No free fluid or free air is seen within the abdomen. There is no evidence of bowel obstruction. Surgical clips are seen medial to the cecum consistent with an appendectomy. Images through the pelvis demonstrate the urinary bladder distended with urine. The patient is post hysterectomy. No adnexal mass is seen. No free fluid is noted. Very mild S-shaped curvature of the thoracolumbar spine is seen. Degenerative changes are seen involving the lower thoracic and mid and lower lumbar spine and both hips. IMPRESSION: No acute abnormality is seen. Electronically signed by: Rg Chan MD (06/27/2018 7:09 PM) [facility]
== END 2018-06-27 19:29 | disposition home or self-care (01) ==
LOC: ER 16:01
DX: R10.31 Right lower quadrant pain (principal); R10.84 Generalized abdominal pain; R11.2 Nausea with vomiting, unspecified; R19.7 Diarrhea, unspecified; G43.909 Migraine, unspecified, not intractable, without status migrainosus; Z90.49 Acquired absence of other specified parts of digestive tract; Z90.89 Acquired absence of other organs; Z90.710 Acquired absence of both cervix and uterus; Z88.1 Allergy status to other antibiotic agents; Z88.4 Allergy status to anesthetic agent; Z88.5 Allergy status to narcotic agent; Z91.040 Latex allergy status; Z88.8 Allergy status to other drugs, medicaments and biological substances
CPT/HCPCS: 36415; 74177; 80053; 81001; 83690; 85025; 96361; 96374; 96375; 99284; J0595; J2405; Q9967; J7030

== ENCOUNTER 2018-07-20 19:29 | Emergency (ER) | payer MEDICARE, OTHER ==
[~2018-07-20] VITALS: Ht 157.5 cm; Wt 63.5 kg
[2018-07-20] MEDS ORDERED: IV NORMAL SALINE 1,000ML 1,000 ML IV SCH (20:08)
[2018-07-20] MEDS ORDERED: MAGNESIUM SULFATE 1GM 100 ML IV ONE (20:15)
[2018-07-20] MEDS ORDERED: diphenhydrAMINE HCL 25 MG CAPSULE PO ONE (20:30)
[2018-07-20] MEDS ORDERED: PROCHLORPERAZINE 10 MG/2 ML VIAL. IV ONE (20:30)
[2018-07-20] MEDS ORDERED: DEXAMETHASONE SOD PHOS 10 MG/ML VIAL IV ONE (20:30)
[2018-07-20 20:41] VITALS: BP 121/76
[2018-07-20 20:45] LABS: BASO # 0.2 x10^3/uL (0.0-0.2); BASO % 1 % (0-3); EOS # 0.1 x10^3/uL (0.0-0.7); EOS % 1 % (0-3); HEMATOCRIT 41.2 % (36.0-47.0); HEMOGLOBIN 13.5 g/dL (12.0-15.5); LYMPH # 4.3 x10^3/uL (1.0-4.8); LYMPH % 31 % (24-48); MEAN CORPUSCULAR HEMOGLOBIN 28 pg (25-35); MEAN CORPUSCULAR HGB CONC 33 g/dL (31-37); MEAN CORPUSCULAR VOLUME 85 fL (79-100); MONO # 0.7 x10^3/uL (0.0-1.1); MONO % 5 % (0-9); NEUT # 8.5 x10^3uL (1.8-7.7); NEUT % 62 % (31-73); PLATELET COUNT 470 x10^3/uL (140-400); RED BLOOD COUNT 4.82 x10^6/uL (3.50-5.40); RED CELL DISTRIBUTION WIDTH 16.3 % (11.5-14.5); WHITE BLOOD COUNT 13.7 x10^3/uL (4.0-11.0)
[2018-07-20] MEDS ORDERED: BUTA1TAB23 PO (21:26)
--- NOTE | 2018-07-20 21:26 | PHYS DOC ---
Past History Past Medical History: Migraines, Other Past Surgical History: Appendectomy, Cholecystectomy, Hysterectomy, Tonsillectomy, Other Alcohol Use: None Drug Use: None Adult General Chief Complaint Chief Complaint: HEADACHE HPI HPI Patient is a 43 year old female who presents with complaint of migraine headache. Patient states that her symptoms started 4 days ago and have been worsening since onset. Patient states she has history of migraine headaches. Patient states that the pain is on both sides for head. Patient is having pressure behind her eyes and sensitivity to light. Admits to nausea. Denies any fever, unilateral weakness, difficulty with speech or swallowing, or vision loss. Patient states that she has tried Excedrin Migraine, Tylenol, and ibuprofen at home with no significant relief. Patient states that she has been in the emergency Department in the past and notes that Toradol, Reglan, and Benadryl have not worked well for her in the past. States that her headache is moderate to severe in nature at this time. Review of Systems Review of Systems Constitutional: Denies fever or chills [] Eyes: Photophobia, denies change in visual acuity, redness, or eye pain [] HENT: Denies nasal congestion or sore throat [] Respiratory: Denies cough or shortness of breath [] Cardiovascular: Denies chest pain or edema[] GI: Nausea, denies abdominal pain, bloody stools or diarrhea [] : Denies dysuria or hematuria [] Musculoskeletal: Denies back pain or joint pain [] Integument: Denies rash or skin lesions [] Neurologic: Headache, denies focal weakness or sensory changes [] All other systems were reviewed and found to be within normal limits, except as documented in this note. Current Medications Current Medications Current Medications Medications (Trade) Dose Ordered Sig/Haley Start Time Stop Time Status Last Admin Dose Admin Dexamethasone Sodium Phosphate (Decadron) 12 mg 1X ONCE 07/20/18 20:30 07/20/18 20:31 DC 07/20/18 20:32 12 MG Diphenhydramine HCl (Benadryl) 25 mg 1X ONCE 07/20/18 20:30 07/20/18 20:31 DC 07/20/18 20:33 25 MG Magnesium Sulfate 100 ml @ 100 mls/hr 1X ONCE 07/20/18 20:15 07/20/18 21:14 DC 07/20/18 20:32 100 MLS/HR Prochlorperazine Edisylate (Compazine) 10 mg 1X ONCE 07/20/18 20:30 07/20/18 20:31 DC 07/20/18 20:32 10 MG Sodium Chloride 1,000 ml @ 1,000 mls/hr Q1H 07/20/18 20:08 07/20/18 21:07 DC 07/20/18 20:34 1,000 MLS/HR Allergies Allergies Allergies Coded Allergies Type Severity Reaction Last Updated Verified doxycycline Allergy Unknown 08/17/17 Yes fentanyl Allergy Unknown 08/17/17 Yes latex Allergy Unknown 08/17/17 Yes lidocaine Allergy Unknown 08/17/17 Yes morphine Allergy Unknown 08/17/17 Yes nickel Allergy Unknown 08/17/17 Yes Physical Exam Physical Exam Constitutional: Alert, afebrile, appears in moderate discomfort. [] HENT: Normocephalic, atraumatic, bilateral external ears normal, oropharynx moist, no oral exudates, nose normal. [] Eyes: PERRLA, EOMI, photophobia present, conjunctiva normal, no discharge. [] Neck: Normal range of motion, no tenderness, supple, no stridor. [] Cardiovascular:Heart rate regular rhythm, no murmur [] Lungs & Thorax: Bilateral breath sounds clear to auscultation [] Abdomen: Bowel sounds normal, soft, no tenderness, no masses, no pulsatile masses. [] Skin: Warm, dry, no erythema, no rash. [] Back: No tenderness, no CVA tenderness. [] Extremities: No tenderness, no cyanosis, no clubbing, ROM intact, no edema. [] Neurologic: Alert and oriented X 3, normal motor function, normal sensory function, no focal deficits noted. [] Current Patient Data Vital Signs Vital Signs Date Time Temp Pulse Resp B/P (MAP) Pulse Ox O2 Delivery O2 Flow Rate FiO2 07/20/18 19:35 98.0 83 16 99 Room Air Lab Results Laboratory Tests Test 07/20/18 20:20 White Blood Count 13.7 x10^3/uL (4.0-11.0) H Red Blood Count 4.82 x10^6/uL (3.50-5.40) Hemoglobin 13.5 g/dL (12.0-15.5) Hematocrit 41.2 % (36.0-47.0) Mean Corpuscular Volume 85 fL (79-100) Mean Corpuscular Hemoglobin 28 pg (25-35) Mean Corpuscular Hemoglobin Concent 33 g/dL (31-37) Red Cell Distribution Width 16.3 % (11.5-14.5) H Platelet Count 470 x10^3/uL (140-400) H Neutrophils (%) (Auto) 62 % (31-73) Lymphocytes (%) (Auto) 31 % (24-48) Monocytes (%) (Auto) 5 % (0-9) Eosinophils (%) (Auto) 1 % (0-3) Basophils (%) (Auto) 1 % (0-3) Neutrophils # (Auto) 8.5 x10^3uL (1.8-7.7) H Lymphocytes # (Auto) 4.3 x10^3/uL (1.0-4.8) Monocytes # (Auto) 0.7 x10^3/uL (0.0-1.1) Eosinophils # (Auto) 0.1 x10^3/uL (0.0-0.7) Basophils # (Auto) 0.2 x10^3/uL (0.0-0.2) EKG EKG Not performed[] Radiology/Procedures Radiology/Procedures Not performed[] Course & Med Decision Making Course & Med Decision Making Pertinent Labs and Imaging studies reviewed. (See chart for details) Patient was treated with magnesium, Compazine, Benadryl, and dexamethasone. On reevaluation, patient states that she feels much better at this time and would like to be discharged home. Advised follow-up with primary doctor next 3 days for reevaluation. Recommended return to emergency department for any worsening symptoms. Patient was understanding and in agreement with treatment plan.[] Dragon Disclaimer Dragon Disclaimer This electronic medical record was generated, in whole or in part, using a voice recognition dictation system. Departure Departure: Impression: Primary Impression: Migraine headache Disposition: HOME, SELF-CARE Condition: IMPROVED Referrals: PCP,UNKNOWN (PCP) Patient Instructions: Migraine Headache Additional Instructions: Follow-up with your primary doctor in 3 days for reevaluation. Return to the emergency department for any worsening symptoms. Scripts Butalb/Acetaminophen/Caffeine ([id number] [id number]) 1 Each Tablet 1 EACH PO Q4HRS PRN for HEADACHE, #20 TAB Prov: EUGENE SANCHEZ MD 07/20/18 Problem Qualifiers Primary Impression: Migraine headache Migraine type: unspecified Status migrainosus presence: without status migrainosus Intractability: not intractable Qualified Codes: G43.909 - Migraine, unspecified, not intractable, without status migrainosus EUGENE SANCHEZ MD Jul 20, 2018 21:26
== END 2018-07-20 21:47 | disposition home or self-care (01) ==
LOC: ER 19:29
DX: G43.909 Migraine, unspecified, not intractable, without status migrainosus (principal); Z88.1 Allergy status to other antibiotic agents; Z88.5 Allergy status to narcotic agent; Z88.4 Allergy status to anesthetic agent; Z91.040 Latex allergy status; Z88.8 Allergy status to other drugs, medicaments and biological substances
CPT/HCPCS: 36415; 85025; 96365; 96375; 99283; J0780; J1100; J3475; Q0163; J7030

== ENCOUNTER → 2018-08-19 | Outpatient (CLI) | payer MEDICARE, OTHER ==
[2018-07-20 20:41] VITALS: BP 121/76
[~2018-08-19] MED LIST changes: +BUTA1TAB23 PO; +HYDR-1179 PO
--- NOTE | 2018-08-19 14:32 | RAD ---
Examination: KNEE STANDING BILAT AP, KNEE LEFT 2V History: KNEE PAIN, BOTH PATELLAS HAVE BEEN REMOVED Comparison/Correlation: None Findings: Frontal view of the knees was obtained. Lateral view of the left knee was provided. Absence of the patella bilaterally is noted consistent with surgical history. Deformity of the anterior aspect of the proximal tibia are noted presumably related to surgical history. Osteopenia noted. No radiopaque foreign body. Medial and lateral compartments are unremarkable. No significant spurring. Impression: Osteopenia. Postoperative findings. No significant narrowing of the medial or lateral compartment of either knee. Electronically signed by: Dylan Morel MD (08/19/2018 2:29 PM) [id number]
== END | disposition home or self-care (01) ==
LOC: RAD 13:39
PROVIDERS: ATTEND Orthopaedic Surgery
DX: M85.862 Other specified disorders of bone density and structure, left lower leg (principal); Z98.890 Other specified postprocedural states; Z96.653 Presence of artificial knee joint, bilateral
CPT/HCPCS: 73560; 73565

== ENCOUNTER → 2018-11-03 | Outpatient (CLI) | payer MEDICARE, OTHER ==
[~2018-11-03] MED LIST changes: -HYDR-1179 PO
--- NOTE | 2018-11-03 13:42 | RAD ---
EXAM: Dual energy x-ray absorptiometry (DEXA). HISTORY: Chronic steroid medication use. Osteoporosis screening. COMPARISON: None. TECHNIQUE: Dual energy x-ray absorptiometry of the lumbar spine and right hip was performed. Calculation of bone mineral density based on standard deviations above or below the expected young adult normal value (T-score) was completed. FINDINGS: The average bone mineral density in the 1st through 4th lumbar vertebrae is 1.154 g/cmxcm, corresponding with a T-score of -0.2. The average total bone mineral density in the right hip is 0.705 g/cmxcm, corresponding with a T-score of -2.0. IMPRESSION: 1. Osteopenia measured at the right hip. 2. Normal bone mineral density measured at the lumbar spine. Note: Definitions established by the World Health Organization: 1. Normal: T-score is -1.0 or above. 2. Osteopenia: T-score is between -1.0 and -2.5 . 3. Osteoporosis: T-score is -2.5 or below. Electronically signed by: Rajwinder Ocasio MD (11/03/2018 1:39 PM) [place] [id number]
== END | disposition home or self-care (01) ==
LOC: DXRAD 12:50
PROVIDERS: ATTEND Orthopaedic Surgery
DX: Z13.820 Encounter for screening for osteoporosis (principal); M85.88 Other specified disorders of bone density and structure, other site
CPT/HCPCS: 77080

== ENCOUNTER 2018-12-19 21:42 | Emergency (ER) | payer MEDICARE, OTHER ==
[~2018-12-19] VITALS: Ht 157.5 cm; Wt 64.0 kg
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
[2018-12-19] MEDS: HYDROcodon/IBUPROFEN 7.5/200MG 1 TAB TABLET PO ONE (22:12)
[2018-12-19] MEDS: BACITRACIN ZINC TOPICAL OINT PACKET. TP ONE (22:12)
[2018-12-19] MEDS: DIPHTH,PERTUSS(ACELL),TET TOX 0.5 ML DISP.SYRIN. VAX IM ONE (22:13)
[2018-12-19] MEDS ORDERED: HYDR-1179 PO (22:46)
[2018-12-19 23:00] VITALS: BP 134/78
== END 2018-12-19 23:00 | disposition home or self-care (01) ==
LOC: ER 21:42
DX: T23.211A Burn of second degree of right thumb (nail), initial encounter (principal); G43.909 Migraine, unspecified, not intractable, without status migrainosus; Z88.1 Allergy status to other antibiotic agents; Z88.4 Allergy status to anesthetic agent; Z88.5 Allergy status to narcotic agent; Z91.040 Latex allergy status; Z88.8 Allergy status to other drugs, medicaments and biological substances; X17.XXXA Contact with hot engines, machinery and tools, initial encounter; Y93.G3 Activity, cooking and baking; Y92.89 Other specified places as the place of occurrence of the external cause; Y99.8 Other external cause status
CPT/HCPCS: 16020; 90471; 90715; 99283; 99284

== ENCOUNTER → 2019-01-13 | Outpatient (CLI) | payer MEDICARE, OTHER ==
[2018-12-19 23:00] VITALS: BP 134/78
[~2019-01-13] MED LIST changes: +HYDR-1179 PO
--- NOTE | 2019-01-13 17:27 | RAD ---
KNEE LEFT 2V History: Patellar tendon rupture repair August 2018.. Comparison: 08/19/2018. FINDINGS: Bilateral PA standing images are obtained as is a lateral view of the left knee. Irregularity of the anterior proximal tibia is stable, compatible with surgical intervention. PET colectomy again seen. No evidence of acute fracture or aggressive bone destruction. Bone demineralization appears similar. Medial and lateral joint compartment height is grossly maintained. IMPRESSION: Postsurgical changes, no acute radiographic findings. Electronically signed by: Tadeo Zepeda MD (01/13/2019 5:24 PM) [email or web address]
== END | disposition home or self-care (01) ==
LOC: DXRAD 13:59
PROVIDERS: ATTEND Orthopaedic Surgery
DX: M81.8 Other osteoporosis without current pathological fracture (principal); M66.262 Spontaneous rupture of extensor tendons, left lower leg
CPT/HCPCS: 73560

== ENCOUNTER → 2019-01-14 | Outpatient (CLI) | payer MEDICARE, OTHER ==
[2018-12-19 23:00] VITALS: BP 134/78
--- NOTE | 2019-01-14 15:03 | RAD ---
VENOUS LOWER EXTREMITY LEFT History: , , Procedure: Realtime grayscale B-mode 2D sonographic images of the superficial and deep veins of both legs were performed with color flow, and spectral waveform analysis Doppler imaging. Findings: This demonstrates good compressibility where possible. Appropriate phasicity and augmentation without evidence of intraluminal thrombus. Impression: No evidence of DVT. Electronically signed by: Prabhakar Sanderson MD (01/14/2019 3:00 PM) [facility]
== END | disposition home or self-care (01) ==
LOC: US 13:00
PROVIDERS: ATTEND Orthopaedic Surgery
DX: M66.262 Spontaneous rupture of extensor tendons, left lower leg (principal)
CPT/HCPCS: 93971

== ENCOUNTER → 2019-03-17 | Outpatient (CLI) | payer MEDICARE, OTHER ==
--- NOTE | 2019-03-17 17:01 | RAD ---
EXAM: AP view both knees, lateral and tangential patellar view right knee DATE: 03/17/2019 12:00 AM INDICATION: Right knee pain COMPARISON: No Prior FINDINGS: Right knee: Changes of bilateral patellar resection are seen. Joint spaces are preserved without significant degenerative/proliferative change. No right knee joint effusion. Chronic changes of the proximal tibia. Single AP view left knee demonstrates changes of patellar resection. Joint spaces are preserved without significant degenerative/proliferative change. IMPRESSION: Changes of bilateral patellar resection are seen No evidence of acute fracture or dislocation. Electronically signed by: Cal Scott MD (03/17/2019 4:58 PM) [facility]
== END | disposition home or self-care (01) ==
LOC: DXRAD 13:26
PROVIDERS: ATTEND Orthopaedic Surgery
DX: M25.561 Pain in right knee (principal)
CPT/HCPCS: 73560; 73565

== ENCOUNTER 2019-06-13 16:47 | Emergency (ER) | payer OTHER, MEDICARE ==
[~2019-06-13] VITALS: Ht 157.5 cm; Wt 64.0 kg
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
[2019-06-13] MEDS ORDERED: IBUPROFEN 600 MG TABLET. PO ONE (17:30)
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
[2019-06-13 18:24] VITALS: BP 140/99
== END 2019-06-13 18:35 | disposition home or self-care (01) ==
LOC: ER 16:47
DX: S16.1XXA Strain of muscle, fascia and tendon at neck level, initial encounter (principal); G43.909 Migraine, unspecified, not intractable, without status migrainosus; M54.5 Low back pain; M25.562 Pain in left knee; M25.572 Pain in left ankle and joints of left foot; G89.29 Other chronic pain; F17.210 Nicotine dependence, cigarettes, uncomplicated; Z90.49 Acquired absence of other specified parts of digestive tract; Z90.89 Acquired absence of other organs; Z90.710 Acquired absence of both cervix and uterus; Z88.1 Allergy status to other antibiotic agents; Z88.8 Allergy status to other drugs, medicaments and biological substances; Z91.040 Latex allergy status; Z88.4 Allergy status to anesthetic agent; V40.5XXA Car driver injured in collision with pedestrian or animal in traffic accident, initial encounter; Y93.I9 Activity, other involving external motion; Y92.89 Other specified places as the place of occurrence of the external cause; Y99.8 Other external cause status
CPT/HCPCS: 72125; 99284

== ENCOUNTER → 2020-01-16 | Outpatient (CLI) | payer MEDICARE, OTHER ==
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
== END ==
LOC: RAD 12:43
PROVIDERS: ATTEND Physician Assistant
DX: M25.512 Pain in left shoulder (principal)
CPT/HCPCS: 73030

== ENCOUNTER 2020-02-23 14:26 | Emergency (ER) | payer MEDICARE, OTHER ==
[~2020-02-23] VITALS: Ht 157.5 cm; Wt 67.2 kg
[2020-02-23] MEDS ORDERED: METOCLOPRAMIDE HCL 10 MG/2 ML VIAL. IVP ONE (15:15)
[2020-02-23] MEDS ORDERED: KETOROLAC 15 MG/ML VIAL. IVP ONE (15:15)
[2020-02-23] MEDS ORDERED: diphenhydrAMINE 50 MG/ML VIAL IVP ONE (15:15)
[2020-02-23] MEDS ORDERED: IV NORMAL SALINE 1,000ML 1,000 ML IV ONE (15:15)
[2020-02-23] MEDS ORDERED: DEXAMETHASONE SOD PHOS 4 MG/ML VIAL. ONE (15:19)
[2020-02-23] MEDS ORDERED: DEXAMETHASONE SOD PHOS 10 MG/ML VIAL. IV ONE (15:31)
--- NOTE | 2020-02-23 16:19 | PHYS DOC ---
Past History Past Medical History: Fibromyalgia, Migraines, Sciatica, Other Additional Past Medical Histor: CROHNS DISEASE; SPINAL STENOSIS; SCOLIOSIS; OSTEOPENIA; TBI Past Surgical History: Appendectomy, Cholecystectomy, , Hysterectomy, Oophorectomy, Tubal ligation, Other Additional Past Surgical Histo: KNEE SURGERY X30; ARM; HAND; JAW BONE Smoking: Cigarettes Alcohol Use: None Drug Use: None General Adult EDM: Chief Complaint: HEADACHE HPI: HPI: Patient is a [age] year old [sex] who presents with [] Review of Systems: Review of Systems: Constitutional: Denies fever or chills Eyes: Denies change in visual acuity HENT: Denies nasal congestion or sore throat Respiratory: Denies cough or shortness of breath Cardiovascular: Denies chest pain or edema GI: Denies abdominal pain, nausea, vomiting, bloody stools or diarrhea : Denies dysuria Musculoskeletal: Denies back pain or joint pain Integument: Denies rash Neurologic: Denies headache, focal weakness or sensory changes Endocrine: Denies polyuria or polydipsia Lymphatic: Denies swollen glands Psychiatric: Denies depression or anxiety Heart Score: Risk Factors: Risk Factors: DM, Current or recent (<one month) smoker, HTN, HLP, family history of CAD, obesity. Risk Scores: Score 0 - 3: 2.5% MACE over next 6 weeks - Discharge Home Score 4 - 6: 20.3% MACE over next 6 weeks - Admit for Clinical Observation Score 7 - 10: 72.7% MACE over next 6 weeks - Early Invasive Strategies Current Medications: Current Meds: Current Medications Medications (Trade) Dose Ordered Sig/Haley Start Time Stop Time Status Last Admin Dose Admin Dexamethasone Sodium Phosphate (Decadron) 4 mg STK-MED ONCE 02/23/20 15:19 02/23/20 15:31 DC Diphenhydramine HCl (Benadryl) 50 mg 1X ONCE 02/23/20 15:15 02/23/20 15:32 DC 02/23/20 15:28 50 MG Ketorolac Tromethamine (Toradol 15mg Vial) 15 mg 1X ONCE 02/23/20 15:15 02/23/20 15:32 DC 02/23/20 15:29 15 MG Metoclopramide HCl (Reglan Vial) 10 mg 1X ONCE 02/23/20 15:15 02/23/20 15:32 DC 02/23/20 15:28 10 MG Sodium Chloride 1,000 ml @ 1,000 mls/hr 1X ONCE 02/23/20 15:15 02/23/20 16:14 DC 02/23/20 15:15 1,000 MLS/HR Allergies: Allergies: Allergies Coded Allergies Type Severity Reaction Last Updated Verified doxycycline Allergy Unknown 02/23/20 Yes fentanyl Allergy Unknown 02/23/20 Yes latex Allergy Unknown 02/23/20 Yes lidocaine Allergy Unknown 02/23/20 Yes morphine Allergy Unknown 02/23/20 Yes nickel Allergy Unknown 02/23/20 Yes Physical Exam: PE: Constitutional: Well developed, well nourished, no acute distress, non-toxic appearance. [] HENT: Normocephalic, atraumatic, bilateral external ears normal, oropharynx moist, no oral exudates, nose normal. [] Eyes: PERRLA, EOMI, conjunctiva normal, no discharge. [] Neck: Normal range of motion, no tenderness, supple, no stridor. [] Cardiovascular:Heart rate regular rhythm, no murmur [] Lungs & Thorax: Bilateral breath sounds clear to auscultation [] Abdomen: Bowel sounds normal, soft, no tenderness, no masses, no pulsatile masses. [] Skin: Warm, dry, no erythema, no rash. [] Back: No tenderness, no CVA tenderness. [] Extremities: No tenderness, no cyanosis, no clubbing, ROM intact, no edema. [] Neurologic: Alert and oriented X 3, normal motor function, normal sensory function, no focal deficits noted. [] Psychologic: Affect normal, judgement normal, mood normal. [] Current Patient Data: Vital Signs: Vital Signs Date Time Temp Pulse Resp B/P (MAP) Pulse Ox O2 Delivery O2 Flow Rate FiO2 02/23/20 14:54 98.6 79 18 148/91 (110) 95 Room Air EKG: EKG: [] Radiology/Procedures: Radiology/Procedures: [] Course & Med Decision Making: Course & Med Decision Making Pertinent Labs and Imaging studies reviewed. (See chart for details) [] Dragon Disclaimer: Dragon Disclaimer: This electronic medical record was generated, in whole or in part, using a voice recognition dictation system. Departure Departure: Impression: Primary Impression: Headache Qualified Codes: R51 - Headache Disposition: 01 HOME/RESIDENCE PRIOR TO ADM Condition: STABLE Referrals: SONIDO WILLINGHAM MD (PCP) CRISTOBAL GARCÍA MD Patient Instructions: Headache, FAQs, Migraine Headache, Uide-sh-Oeds Justification of Admission: Justification of Admission: Justification of Admission Dx: N/A JAELYN ROSE DO Feb 23, 2020 16:19
[2020-02-23 16:27] VITALS: BP 123/82
== END 2020-02-23 16:30 | disposition home or self-care (01) ==
LOC: ER 14:26
DX: G43.909 Migraine, unspecified, not intractable, without status migrainosus (principal); R11.10 Vomiting, unspecified; M79.7 Fibromyalgia; F17.210 Nicotine dependence, cigarettes, uncomplicated; Z90.49 Acquired absence of other specified parts of digestive tract; Z90.89 Acquired absence of other organs; Z98.890 Other specified postprocedural states; Z98.51 Tubal ligation status; Z90.710 Acquired absence of both cervix and uterus; Z88.1 Allergy status to other antibiotic agents; Z91.040 Latex allergy status; Z90.722 Acquired absence of ovaries, bilateral; Z88.8 Allergy status to other drugs, medicaments and biological substances; Z88.4 Allergy status to anesthetic agent; Z88.5 Allergy status to narcotic agent
CPT/HCPCS: 96361; 96374; 96375; 99284; J1100; J1200; J1885; J2765; J7030

== ENCOUNTER 2021-01-25 22:06 | Emergency (ER) | payer MEDICARE, OTHER ==
[~2021-01-25] VITALS: Ht 157.5 cm; Wt 67.2 kg
[2021-01-25 22:10] VITALS: BP 122/52
--- NOTE | 2021-01-25 23:07 | RAD ---
Left shoulder 3 views. HISTORY: Pain 3 views were taken left shoulder. There are erosive changes on the distal clavicle at the AC joint po ssible arthritis. There is no fracture or dislocation. A good external rotation view of the shoulder was not obtained. IMPRESSION: 1. AC joint arthritis. 2. No fracture or dislocation noted at the left shoulder. Electronically signed by: Ted Hwang MD (01/25/2021 11:04 PM) [facility]
--- NOTE | 2021-01-25 23:28 | PHYS DOC ---
Past History Past Medical History: Fibromyalgia, Migraines, Sciatica, Other Additional Past Medical Histor: CROHNS DISEASE; SPINAL STENOSIS; SCOLIOSIS; OSTEOPENIA; TBI Past Surgical History: Appendectomy, Cholecystectomy, , Hysterectomy, Oophorectomy, Tubal ligation, Other Additional Past Surgical Histo: KNEE SURGERY X30; ARM; HAND; JAW BONE Smoking: Cigarettes Alcohol Use: None Drug Use: None Adult General Chief Complaint Chief Complaint: SHOULDER INJURY HPI HPI Patient is a 45-year-old female who presents with left shoulder pain, 6 out of 10, dull and achy in nature with a past medical history significant for shoulder surgery 6 weeks ago for a torn deltoid muscle. States that she was doing some housework earlier this morning and felt a twinge in the area and has had the symptoms since then. States she called her orthopedic surgeon who was not in the office. States she had not taken any medicines for this. Denies any other injuries. Review of Systems Review of Systems Review of systems otherwise unremarkable except noted in HPI Allergies Allergies Allergies Coded Allergies Type Severity Reaction Last Updated Verified doxycycline Allergy Unknown 02/23/20 Yes fentanyl Allergy Unknown 02/23/20 Yes latex Allergy Unknown 02/23/20 Yes lidocaine Allergy Unknown 02/23/20 Yes morphine Allergy Unknown 02/23/20 Yes nickel Allergy Unknown 02/23/20 Yes Physical Exam Physical Exam Constitutional: Well developed, well nourished, no acute distress, non-toxic appearance. [] Neck: Normal range of motion, no tenderness, supple, no stridor. [] Cardiovascular:Heart rate regular rhythm, no murmur [] Lungs & Thorax: Bilateral breath sounds clear to auscultation [] Back: No tenderness, Extremities: Generalized tenderness around the shoulder with normal passive range of motion and elicited pain on active range of motion when extending and abducting. Neurovascular exam intact Neurologic: Alert and oriented X 3, no focal deficits noted. [] Psychologic: Affect normal, judgement normal, mood normal. [] Current Patient Data Vital Signs Vital Signs Date Time Temp Pulse Resp B/P (MAP) Pulse Ox O2 Delivery O2 Flow Rate FiO2 01/25/21 22:10 97.6 92 18 122/52 98 Room Air EKG EKG [] Radiology/Procedures Radiology/Procedures [] Left shoulder 3 views. HISTORY: Pain 3 views were taken left shoulder. There are erosive changes on the distal clavicle at the AC joint possible arthritis. There is no fracture or dislocation. A good external rotation view of the shoulder was not obtained. IMPRESSION: 1. AC joint arthritis. 2. No fracture or dislocation noted at the left shoulder. Electronically signed by: Ted Hwang MD (01/25/2021 11:04 PM) [facility] Heart Score C/O Chest Pain: No Risk Factors: Risk Factors: DM, Current or recent (<one month) smoker, HTN, HLP, family history of CAD, obesity. Risk Scores: Risk Factors: DM, Current or recent (<one month) smoker, HTN, HLP, family history of CAD, obesity. Course & Med Decision Making Course & Med Decision Making Patient is a 45-year-old female who presents with left shoulder pain Vital signs not concerning. Physical exam noted above. Imaging with no acute osseous abnormalities. Noted for arthritis. Given oral pain medicine and placed in a splint. Advised on pain management at home. Advised to call primary care physi madhuri/orthopedic surgeon first thing Thursday. Gave return precautions to the ED. Patient grateful, verbalized understanding and agreed with plan of discharge. [] Dragon Disclaimer Dragon Disclaimer This electronic medical record was generated, in whole or in part, using a voice recognition dictation system. Departure Departure: Impression: Primary Impression: Shoulder pain Disposition: 01 HOME / SELF CARE / HOMELESS Condition: GOOD Referrals: PCP,UNKNOWN (PCP) CESAR STINSON MD Patient Instructions: RICE - Routine Care for Injuries Additional Instructions: Thank you for coming into the emergency department tonight and allowing us to take care of you. Please read all of the attached information very carefully to go back over things we discussed. You are placed in a sling for comfort and protection. You can begin a Tylenol, ibuprofen, ice, heat and Lidoderm patch therapy at home as needed and discussed. You are given 2 doses of oral pain medicine to take home with you. Please call your orthopedic surgeon first thing Thursday to set up a ER follow-up visit as soon as possible. Please come back to the ED with new or concerning symptoms as discussed. JIL BRADSHAW MD Jan 25, 2021 23:28
[2021-01-25] MEDS ORDERED: oxyCODONE/APAP 5/325 1 TAB TABLET PO ONE (23:30)
== END 2021-01-25 23:35 | disposition home or self-care (01) ==
LOC: ER 22:06
DX: M25.512 Pain in left shoulder (principal); Z88.1 Allergy status to other antibiotic agents; Z91.040 Latex allergy status; Z88.5 Allergy status to narcotic agent; Z90.49 Acquired absence of other specified parts of digestive tract; Z90.710 Acquired absence of both cervix and uterus
CPT/HCPCS: 29105; 73030; 99283-25

== ENCOUNTER 2021-02-03 02:39 | Emergency (ER) | payer MEDICARE, OTHER ==
[~2021-02-03] VITALS: Ht 157.5 cm; Wt 67.2 kg
[2021-02-03 03:27] VITALS: BP 122/82
[2021-02-03] MEDS ORDERED: HYDR-2759 PO (03:34)
--- NOTE | 2021-02-03 03:35 | PHYS DOC ---
Past History Past Medical History: Fibromyalgia, Migraines, Sciatica, Other Additional Past Medical Histor: CROHNS DISEASE; SPINAL STENOSIS; SCOLIOSIS; OSTEOPENIA; TBI Past Surgical History: Appendectomy, Cholecystectomy, , Hysterectomy, Oophorectomy, Tubal ligation, Other Additional Past Surgical Histo: KNEE SURGERY X30; ARM; HAND; JAW BONE Smoking: Cigarettes Alcohol Use: None Drug Use: None General Adult EDM: Chief Complaint: SHOULDER INJURY HPI: HPI: 45-year-old female presents with left shoulder pain. The patient had surgery on her left shoulder about a month ago. She was putting some things away and felt a pop 6 days ago. She has had continual pain since that time. It is worse with any lifting or motion. The patient has attempted to get back in with her surgeon but he is switching practices and is unable to see the patient at this time. The previous office does not want to see the patient for a month. She cannot wait that long. She does not have anyone to prescribe pain medication or to help her get into a new specialist so that she can get this fixed. Review of Systems: Review of Systems: Constitutional: Denies fever or chills Eyes: Denies change in visual acuity HENT: Denies nasal congestion or sore throat Respiratory: Denies cough or shortness of breath Cardiovascular: Denies chest pain or edema GI: Denies abdominal pain, nausea, vomiting, bloody stools or diarrhea : Denies dysuria Musculoskeletal: Left shoulder pain Integument: Denies rash Neurologic: Denies headache, focal weakness or sensory changes Endocrine: Denies polyuria or polydipsia Lymphatic: Denies swollen glands Psychiatric: Denies depression or anxiety Allergies: Allergies: Allergies Coded Allergies Type Severity Reaction Last Updated Verified doxycycline Allergy Unknown 02/23/20 Yes fentanyl Allergy Unknown 02/23/20 Yes latex Allergy Unknown 02/23/20 Yes lidocaine Allergy Unknown 02/23/20 Yes morphine Allergy Unknown 02/23/20 Yes nickel Allergy Unknown 02/23/20 Yes Physical Exam: PE: Constitutional: Well developed, well nourished, no acute distress, non-toxic appearance. [] HENT: Normocephalic, atraumatic, bilateral external ears normal, oropharynx moist, no oral exudates, nose normal. [] Eyes: PERRLA, EOMI, conjunctiva normal, no discharge. [] Neck: Normal range of motion, no tenderness, supple, no stridor. [] Cardiovascular:Heart rate regular rhythm, no murmur [] Lungs & Thorax: Bilateral breath sounds clear to auscultation [] Abdomen: Bowel sounds normal, soft, no tenderness, no masses, no pulsatile masses. [] Skin: Warm, dry, no erythema, no rash. [] Back: No tenderness, no CVA tenderness. [] Extremities: Tenderness of the superior and lateral left shoulder, surgical scar, significantly decreased strength with all motions of the shoulder. Significantly decreased range of motion. [] Neurologic: Alert and oriented X 3, normal motor function, normal sensory f unction, no focal deficits noted. [] Psychologic: Affect normal, judgement normal, mood normal. [] EKG: EKG: [] Radiology/Procedures: Radiology/Procedures: [] Heart Score: C/O Chest Pain: N/A Risk Factors: Risk Factors: DM, Current or recent (<one month) smoker, HTN, HLP, family history of CAD, obesity. Risk Scores: Score 0 - 3: 2.5% MACE over next 6 weeks - Discharge Home Score 4 - 6: 20.3% MACE over next 6 weeks - Admit for Clinical Observation Score 7 - 10: 72.7% MACE over next 6 weeks - Early Invasive Strategies Course & Med Decision Making: Course & Med Decision Making Pertinent Labs and Imaging studies reviewed. (See chart for details) The patient has obvious discomfort. I do believe plate x-rays are useful at this time. Advised the patient to keep with her insurance company and find another orthopedic office to go to even though she should be taken care of by the previous surgical team. I will give her a short course of Pitcher for her pain and to help her sleep. She is stable for discharge at this time. [] Kiarra Disclaimer: Kiarra Disclaimer: This electronic medical record was generated, in whole or in part, using a voice recognition dictation system. Departure Departure: Impression: Primary Impression: Left shoulder pain Qualified Codes: M25.512 - Pain in left shoulder Disposition: HOME / SELF CARE / HOMELESS Condition: STABLE Referrals: PCP,UNKNOWN (PCP) Patient Instructions: Shoulder Pain, [id number] Scripts Hydrocodone/Acetaminophen (Hydrocodone-Acetamin 5-325 mg) 1 Each Tablet 1 EACH PO Q4-6HRS PRN for PAIN, #14 TAB Prov: LUIS MANUEL CASANOVA DO 02/03/21 LUIS MANUEL CASANOVA DO Feb 03, 2021 03:35
[2021-02-03] MEDS ORDERED: HYDROcodone/APAP 7.5/325MG 1 TAB TABLET PO ONE (04:00)
== END 2021-02-03 03:43 | disposition home or self-care (01) ==
LOC: ER 02:39
DX: M25.512 Pain in left shoulder (principal); F17.210 Nicotine dependence, cigarettes, uncomplicated; Z88.1 Allergy status to other antibiotic agents; Z91.040 Latex allergy status; Z88.5 Allergy status to narcotic agent; Z90.49 Acquired absence of other specified parts of digestive tract; Z98.51 Tubal ligation status; Z90.710 Acquired absence of both cervix and uterus
CPT/HCPCS: 99283

== ENCOUNTER → 2021-03-14 | Outpatient (CLI) | payer MEDICARE, OTHER ==
[~2021-03-14] MED LIST changes: +HYDR-2759 PO
--- NOTE | 2021-03-14 12:34 | RAD ---
3 views right shoulder 03/14/2021 12:13 PM Indication: Reason: RIGHT SHOULDER PAIN / Spl. Instructions: / History: Comparison: None available Findings: There is no acute fracture or dislocation. Articular surfaces are uninterupted and smooth. Irregularity of the medial soft tissues of the upper arm noted. This may be artifactual. Correlate [facility] physical exam findings. Impression: 1. No evidence of acute osseous abnormality. 2. Irregularity of the medial soft tissues of the upper arm noted. This may be artifactual. Correlate with physical exam findings. Electronically signed by: Wesley Ley MD (03/14/2021 12:32 PM) [id number]
== END ==
LOC: RAD 12:07
PROVIDERS: ATTEND Nurse Practitioner Family
DX: M25.511 Pain in right shoulder (principal)
CPT/HCPCS: 73030

== ENCOUNTER 2021-03-23 05:50 | Emergency (ER) | payer MEDICARE, OTHER ==
[~2021-03-23] VITALS: Ht 157.5 cm; Wt 68.2 kg
--- NOTE | 2021-03-23 06:02 | PHYS DOC ---
Past History Past Medical History: Fibromyalgia, Migraines, Sciatica, Other Additional Past Medical Histor: CROHNS DISEASE; SPINAL STENOSIS; SCOLIOSIS; OSTEOPENIA; TBI Past Surgical History: Appendectomy, Cholecystectomy, , Hysterectomy, Oophorectomy, Tubal ligation, Other Additional Past Surgical Histo: KNEE SURGERY X30; ARM; HAND; JAW BONE Smoking: Cigarettes Alcohol Use: None Drug Use: None Adult General Chief Complaint Chief Complaint: SHOULDER INJURY [facility] HPI Patient is a 45-year-old female presenting for left shoulder pain. This is an acute on chronic issue. She has history of a recently repaired left rotator cuff performed August [address] Can at [facility]. Reports she subsequently retore her left rotator cuff this past January. Reports she has been trying to see a different shoulder specialist for evaluation and surgical fixation since then. Nonetheless, patient reports she woke up from her sleep after rolling over and experienced severe left shoulder pain. She took x1 tablet of unknown dose Tylenol which did not help her symptoms prompting her to come in for evaluation. She reports decreased range of motion of left upper extremity globally due to pain otherwise no major changes in motor or sensory or neuro function Review of Systems Review of Systems Fourteen body systems of review of systems have been reviewed. See HPI for pertinent positives and negative responses, other pereira all other systems are negative, non-pertinent or non-contributory Allergies Allergies Allergies Coded Allergies Type Severity Reaction Last Updated Verified doxycycline Allergy Unknown 02/23/20 Yes fentanyl Allergy Unknown 02/23/20 Yes latex Allergy Unknown 02/23/20 Yes lidocaine Allergy Unknown 02/23/20 Yes morphine Allergy Unknown 02/23/20 Yes nickel Allergy Unknown 02/23/20 Yes Physical Exam Physical Exam Constitutional: Well developed, appears stated age, appears uncomfortable but is not in any distress and is nontoxic in appearance HENT: Normocephalic, atraumatic, bilateral external ears normal, oropharynx moist, no oral exudates, nose normal. Eyes: PERRLA, EOMI, conjunctiva normal, no discharge. Neck: Normal range of motion, no tenderness, supple, no stridor. Cardiovascular: Heart rate regular, sinus rhythm, no murmurs rubs or gallops Lungs & Thorax: Bilateral breath sounds clear to auscultation Abdomen: Bowel sounds normal, soft, no tenderness, no masses, no pulsatile masses. Nonsurgical abdomen, no peritoneal signs Skin: Warm, dry, no erythema, no rash. Back: No tenderness, no CVA tenderness. Extremities: No cyanosis, no clubbing, no edema. Decreased range of motion globally of left upper extremity due to pain. Formal exam of left elbow, forearm, wrist and hand unremarkable. Tenderness to palpation around the left shoulder globally, patient even wincing in pain when palpating over clavicle. She is noncooperative when attempting to perform shoulder exams to determine rotator cuff versus impingement versus other etiology etc. Neurologic: Alert and oriented X 3, cranial nerves II through XII intact, medial radial and ulnar nerves of left upper extremity intact, normal motor & sensory function, no focal deficits noted. Psychologic: Anxious affect and mood Current Patient Data Vital Signs Vital Signs Date Time Temp Pulse Resp B/P (MAP) Pulse Ox O2 Delivery O2 Flow Rate FiO2 03/23/21 06:03 97.9 80 18 128/96 (107) 100 Room Air Vital Signs Date Time Temp Pulse Resp B/P (MAP) Pulse Ox O2 Delivery O2 Flow Rate FiO2 03/23/21 06:03 97.9 80 18 128/96 (107) 100 Room Air EKG EKG [] Radiology/Procedures Radiology/Procedures [] Heart Score C/O Chest Pain: No Risk Factors: Risk Factors: DM, Current or recent (<one month) smoker, HTN, HLP, family h istory of CAD, obesity. Risk Scores: Risk Factors: DM, Current or recent (<one month) smoker, HTN, HLP, family history of CAD, obesity. Course & Med Decision Making Course & Med Decision Making ABCs unremarkable. I disclosed entirety of ER findings and discussed most likely diagnosis of acute on chronic left shoulder pain. Other diagnoses were discussed with patient such as left shoulder impingement and other concerning diagnoses of the shoulder but all deemed less likely causes of patient's presentation. Patient uncooperative and not wanting to participate in several exams of left shoulder due to pain. We both agree presentation likely due to known retorn left rotator cuff. Patient understands radiographs, CT scans and other diagnostic modalities in ER would not change plan of care and so, joint decision made to discharge home with simple sling for use as needed, narcotic pain medication short-term for severe pain and close outpatient follow-up with shoulder specialist. Plan of care discussed at length with need for close outpatient follow-up to review today's ER visit stressed. Strict return precautions were also discussed at length with good understanding verbalized by patient. Patient voiced understanding and agreement with the plan. Patient knows to come back for repeat evaluation if concerning signs or symptoms present prior to outpatient follow-up. Hemodynamically stable, ambulatory and well- appearing at time of disposition. Dragon Disclaimer Dragon Disclaimer This electronic medical record was generated, in whole or in part, using a voice recognition dictation system. Departure Departure: Impression: Primary Impression: Left shoulder pain Disposition: HOME / SELF CARE / HOMELESS Condition: STABLE Referrals: PCP,UNKNOWN (PCP) Patient Instructions: Shoulder Exercises, Generic, SportsMed, Shoulder Pain Additional Instructions: You were seen for pain in your left shoulder. You should return to the ED if you develop worsening pain, fever, numbness, tingling, weakness, or any other ne w or concerning symptoms. Your pain is most likely due to an exacerbation of your left torn rotator cuff and should improve with Tylenol, stretching, and activity. Do not drink, drive, or do anything important while taking prescribed narcotic medication because it can make you sleepy. Your condition might not fully resolve until you are seen by a shoulder specialist. It was a pleasure to take care of you and I wish you the best going forward Scripts Hydrocodone/Acetaminophen (Hydrocodone-Acetamin 5-325 mg) 1 Each Tablet 1 EACH PO Q4-6HRS PRN for SEVERE PAIN 7-10, #10 TAB Prov: DREA ALLEN DO 03/23/21 DREA ALLEN DO Mar 23, 2021 06:02
[2021-03-23 06:03] VITALS: BP 128/96
[2021-03-23] MEDS ORDERED: HYDROcodone/APAP 7.5/325MG 1 TAB TABLET PO ONE (06:15)
[2021-03-23] MEDS ORDERED: HYDR-2759 PO (06:19)
[2021-03-23] MEDS ORDERED: ONDANSETRON ODT 4 MG TAB.RAPDIS ONE (06:24)
[2021-03-23] MEDS ORDERED: ONDANSETRON ODT 4 MG TAB.RAPDIS PO ONE (06:30)
== END 2021-03-23 06:28 | disposition home or self-care (01) ==
LOC: ER 05:50
DX: M25.512 Pain in left shoulder (principal); G43.909 Migraine, unspecified, not intractable, without status migrainosus; F17.210 Nicotine dependence, cigarettes, uncomplicated; Z90.710 Acquired absence of both cervix and uterus; Z88.1 Allergy status to other antibiotic agents; Z88.8 Allergy status to other drugs, medicaments and biological substances; Z91.040 Latex allergy status; Z88.6 Allergy status to analgesic agent; Z90.49 Acquired absence of other specified parts of digestive tract
CPT/HCPCS: 99283; Q0162

== ENCOUNTER 2021-04-17 00:36 | Emergency (ER) | payer MEDICARE, OTHER ==
[~2021-04-17] VITALS: Ht 157.5 cm; Wt 68.6 kg
--- NOTE | 2021-04-17 01:00 | PHYS DOC ---
Past History Past Medical History: Fibromyalgia, Migraines, Sciatica, Other Additional Past Medical Histor: CROHNS DISEASE; SPINAL STENOSIS; SCOLIOSIS; OSTEOPENIA; TBI Past Medical History Chronic Rotator cuff injury Past Surgical History: Appendectomy, Cholecystectomy, , Hysterectomy, Oophorectomy, Tubal ligation, Other Additional Past Surgical Histo: KNEE SURGERY X30; ARM; HAND; JAW BONE, L SHOULDER Smoking: Cigarettes Alcohol Use: None Drug Use: None General Adult EDM: Chief Complaint: SHOULDER INJURY HPI: HPI: 45-year-old female presents with report of left shoulder pain after patient reports she "repositioned " and felt a sudden "pop "to her left shoulder. Patient reports occurred a few hours ago. Patient reports she became very na useated and ended up passing out due to the significant pain. Patient does report history of chronic left shoulder pain secondary to a rotator cuff tear. Patient reports she has tried to follow with orthopedics but unfortunately has not been able to get a surgical repair scheduled. Patient denies significant trauma or fall. Denies fever or chills. Patient denies chest pain, headache, or neck pain. Patient reports taking some Tylenol with limited improvement of symptoms. Review of Systems: Review of Systems: Constitutional: Denies fever or chills Eyes: Denies redness or eye pain HENT: Denies nasal congestion or sore throat Respiratory: Denies cough or shortness of breath Cardiovascular: Denies chest pain or palpitations GI: Denies abdominal pain or vomiting; reports nausea : Denies dysuria or hematuria Musculoskeletal: Denies back pain; reports left shoulder pain Integument: Denies rash or skin lesions Neurologic: Denies headache, focal weakness or sensory changes; reports vasovagal syncope Complete systems were reviewed and found to be within normal limits, except as documented in this note. Current Medications: Current Meds: Current Medications Medications (Trade) Dose Ordered Sig/[facility] Start Time Stop Time Status Last Admin Dose Admin Acetaminophen/ Hydrocodone Bitart (Lortab 5/325) 1 tab 1X ONCE 04/17/21 01:30 04/17/21 01:31 Dexamethasone (Decadron) 10 mg 1X ONCE 04/17/21 01:30 04/17/21 01:31 Ondansetron HCl (Zofran Odt) 4 mg 1X ONCE 04/17/21 01:30 04/17/21 01:31 Orphenadrine Citrate (Norflex) 60 mg 1X ONCE 04/17/21 01:30 04/17/21 01:31 Allergies: Allergies: Allergies Coded Allergies Type Severity Reaction Last Updated Verified NSAIDS (Non-Steroidal Anti-Inflamma Allergy Intermediate 04/17/21 Yes doxycycline Allergy Intermediate 04/17/21 Yes fentanyl Allergy Intermediate 04/17/21 Yes latex Allergy Intermediate 04/17/21 Yes lidocaine Allergy Intermediate 04/17/21 Yes morphine Allergy Intermediate 04/17/21 Yes nickel Allergy Intermediate 04/17/21 Yes Physical Exam: PE: Constitutional: Well developed, well nourished, uncomfortable, non-toxic appearance HENT: Normocephalic, atraumatic Eyes: PERRL, EOMI, conjunctiva normal, no discharge Neck: Normal range of motion, no midline tenderness, supple Lungs & Thorax: No respiratory distress, equal chest rise and fall Abdomen: Soft, no tenderness Skin: Warm, dry, no erythema, no rash Extremities: Left glenohumeral tenderness, ROM diminished secondary to pain, no edema, left radial pulse +2, left upper extremity distal sensation intact Neurologic: Alert and oriented X 3, normal motor function, normal sensory function, no focal deficits noted Psychologic: Affect anxious, judgment normal EKG: EKG: [] Radiology/Procedures: Radiology/Procedures: PROCEDURE: SHOULDER 2+V LEFT XR SHOULDER_LEFT 2+ VIEWS History: Reason: pain, hx of chronic rotator cuff injury / Spl. Instructions: / History: Technique: 3 views left shoulder Comparison: January 25, 2021 Findings: No dislocation. No acute fracture. Mild superior migration of the humeral head, unchanged. Mild glenohumeral and acromioclavicular DJD. Unchanged slight widening of the acromioclavicular joint. Impression: 1. No acute osseous abnormality. 2. Mild glenohumeral DJD with superior migration of the humeral head, may indicate rotator cuff tear. Electronically signed by: Mitch Avendaño DO (04/17/2021 1:24 AM) [facility] Heart Score: C/O Chest Pain: N/A Course & Med Decision Making: Course & Med Decision Making Pertinent Imaging studies reviewed. (See chart for details) Patient presents with acute on chronic left shoulder pain with history of rotator cuff injury. Patient reports sensation of a "pop "in her left shoulder prior to significant pain. Patient also reported some loss of consciousness and nausea after pain became more intense. Patient does report taking Tylenol previously with limited improvement. Patient reports history of multiple allergies/aversions to medication secondary to some chronic conditions. Patient does not appear to have acute dislocation. Pain addressed. Ice applied. X- ray obtained without findings consistent for fracture or dislocation. A shoulder immobilizer was provided for comfort. Patient advised to perform shoulder circles 10 times in each direction at least 5 times daily. Patient stable for discharge with outpatient follow-up with PCP/orthopedics. Orthopedic referral provided. Discussed findings and plan with patient, who acknowledges understanding and agreement. Dragon Disclaimer: Dragon Disclaimer: This electronic medical record was generated, in whole or in part, using a voice recognition dictation system. Splinting Splinting : Location: Left shoulder Pre-Made Type: shoulder immobilizer Pre-Proc Neuro Vasc Exam: normal Post-Proc Neuro Vasc Exam: normal, unchanged from pre-exam Departure Departure: Impression: Primary Impression: Shoulder pain, left Qualified Codes: M25.512 - Pain in left shoulder; G89.29 - Other chronic pain Additional Impression: Nausea Disposition: 01 HOME / SELF CARE / HOMELESS Condition: STABLE Referrals: PCP,UNKNOWN (PCP) JOSELO RANDOLPH Jr. DO Patient Instructions: Clear Liquid Diet, [id number], Nausea, Adult, [id number], Shoulder Pain, [id number] Additional Instructions: ICE area of discomfort 20 min on then leave off next 20 mins. Repeat several times as needed for next few days. Make sure to perform "shoulder circles". Drop arm out of shoulder immobilizer. DO 10 circles in one direction then reverse and do 10 circles in opposite direction. Please perform this at least 5 times daily while using immobilizer to prevent a "frozen shoulder". Scripts Ondansetron (ONDANSETRON ODT) 4 Mg Tab.rapdis 1 TAB PO PRN Q6-8HRS PRN for NAUSEA, #16 TAB Prov: JAELYN ROSE DO 04/17/21 Prednisone (PREDNISONE) 20 Mg Tablet 2 TAB PO DAILY for Inflammation for 4 Days, #8 TAB Start this prescription tommorr, 04/18/21 Prov: JAELYN ROSE DO 04/17/21 Hydrocodone/Acetaminophen (Hydrocodone-Acetamin 5-325 mg) 1 Each Tablet 0.5-1 EACH PO Q6HRS PRN for PAIN, #10 TAB Prov: JAELYN ROSE DO 04/17/21 Orphenadrine Citrate (ORPHENADRINE CITRATE) 100 Mg Tablet.er 1 TAB PO BID PRN for MUSCLE PAIN, #14 TAB 0 Refills Prov: JAELYN ROSE DO 04/17/21 JAELYN ROSE DO Apr 17, 2021 01:00
[2021-04-17] MEDS ORDERED: ONDA4TAB12 PO (01:11)
[2021-04-17] MEDS ORDERED: ORPH-16 PO (01:11)
[2021-04-17] MEDS ORDERED: PRED20TA PO (01:11)
[2021-04-17] MEDS ORDERED: HYDR-2759 PO (01:11)
--- NOTE | 2021-04-17 01:27 | RAD ---
XR SHOULDER_LEFT 2+ VIEWS History: Reason: pain, hx of chronic rotator cuff injury / Spl. Instructions: / History: Technique: 3 views left shoulder Comparison: January 25, 2021 Findings: No dislocation. No acute fracture. Mild superior migration of the humeral head, unchanged. Mild gleno humeral and acromioclavicular DJD. Unchanged slight widening of the acromioclavicular joint. Impression: 1. No acute osseous abnormality. 2. Mild glenohumeral DJD with superior migration of the humeral head, may indicate rotator cuff tear . Electronically signed by: Mitch Avendaño DO (04/17/2021 1:24 AM) [facility]
[2021-04-17] MEDS ORDERED: HYDROcodone/APAP 5/325MG 1 TAB TABLET PO ONE (01:30)
[2021-04-17] MEDS ORDERED: ONDANSETRON ODT 4 MG TAB.RAPDIS PO ONE (01:30)
[2021-04-17] MEDS ORDERED: DEXAMETHASONE 4 MG TABLET PO ONE (01:30)
[2021-04-17] MEDS ORDERED: ORPHENADRINE CITRATE 60 MG/2 ML VIAL. IM ONE (01:30)
[2021-04-17 01:35] VITALS: BP 140/62
== END 2021-04-17 01:40 | disposition home or self-care (01) ==
LOC: ER 00:36
DX: M25.512 Pain in left shoulder (principal); G89.29 Other chronic pain; R11.0 Nausea; R55 Syncope and collapse; M79.7 Fibromyalgia; G43.909 Migraine, unspecified, not intractable, without status migrainosus; F17.210 Nicotine dependence, cigarettes, uncomplicated; Z88.6 Allergy status to analgesic agent; Z88.1 Allergy status to other antibiotic agents; Z91.040 Latex allergy status; Z88.4 Allergy status to anesthetic agent; Z88.8 Allergy status to other drugs, medicaments and biological substances
CPT/HCPCS: 29105; 73030; 96372; 99284; J2360; J8540; Q0162

== ENCOUNTER 2021-05-10 15:13 | Emergency (ER) | payer MEDICARE, OTHER ==
[~2021-05-10] VITALS: Ht 157.5 cm; Wt 68.6 kg
[~2021-05-10 15:13] MED LIST changes: +ONDA4TAB12 PO; +ORPH-16 PO
[2021-05-10 15:20] VITALS: BP 147/79
[2021-05-10] MEDS ORDERED: KETOROLAC 60 MG/2 ML VIAL. IM ONE (16:00)
--- NOTE | 2021-05-10 16:15 | RAD ---
Exam: Left shoulder 3 views INDICATION: Trauma TECHNIQUE: Frontal view of the left shoulder with internal and external rotation and transscapular Y views Comparisons: None FINDINGS: Bone mineralization is normal. No acute or healed fractures. Soft tissues are unremarkable. Joint spa gus are well-maintained. IMPRESSION: No acute osseous abnormality. Electronically signed by: Jil James MD (05/10/2021 4:13 PM) ESSENCE
--- NOTE | 2021-05-10 16:20 | RAD ---
XR KNEE 3 VIEWS History: Trauma. Comparison: Knee radiographs 03/17/2019 Technique: 3 views of the right knee. 3 views of left knee. Findings: Redemonstrated bilateral patellar resection. Postsurgical changes at the distal femur and proximal an terior tibia bilaterally. No acute fracture or dislocation. Mild bilateral medial tibiofemoral compar tment osteophytes. No significant knee effusions. No significant anterior knee soft tissue swelling. Impression: 1. No acute osseous abnormality of the bilateral knees. Electronically signed by: Daniel Fox MD (05/10/2021 4:18 PM) [id number]
--- NOTE | 2021-05-10 16:31 | PHYS DOC ---
Past History Past Medical History: Fibromyalgia, Migraines, Sciatica, Other Additional Past Medical Histor: CROHNS DISEASE; SPINAL STENOSIS; SCOLIOSIS; OSTEOPENIA; TBI (DARLIN WEST) Past Surgical History: Appendectomy, Cholecystectomy, , Hysterectomy, Oophorectomy, Tubal ligation, Other Additional Past Surgical Histo: KNEE SURGERY X3; ARM; HAND; JAW BONE, L SHOULDER (DARLIN WEST) Smoking: Cigarettes Alcohol Use: None Drug Use: None (DARLIN WEST) General Adult EDM: Chief Complaint: MECHANICAL FALL HPI: HPI: Patient is a 45 year old female who presents with bilateral knee pain and left shoulder pain. Patient rates her pain at a constant 6/10 with intermittent waves up to 9/10. She states she was walking down the stairs when her left knee buckled and her right knee "rolled." Patient reports she heard a "pop." Patient has chronic left shoulder pain due to a rotator cuff injury. Patient reports she has had 2 prior surgeries this year. She used to follow with Dr. Romero, however he left the [facility] group "on bad terms." Since then, she has had extreme difficulty obtaining orthopedic follow- up care. She reports that the [facility] group will not schedule her for an appointment, but when she tries to see other orthopedists, [facility] does not release records upon her request. Patient reports additional past medical history of Crohn's, for which she cannot take oral NSAIDs. Patient has no other complaints at this time. (DARLIN WEST) Review of Systems: Review of Systems: ROS negative except as mentioned in HPI. (DARLIN WEST) Current Medications: Current Meds: Current Medications Medications (Trade) Dose Ordered Sig/Haley Start Time Stop Time Status Last Admin Dose Admin Ketorolac Tromethamine (Toradol Im) 60 mg 1X ONCE 05/10/21 16:00 05/10/21 16:04 DC 05/10/21 16:14 60 MG (DARLIN WEST) Allergies: Allergies: Allergies Coded Allergies Type Severity Reaction Last Updated Verified NSAIDS (Non-Steroidal Anti-Inflamma Allergy Intermediate 05/10/21 Yes doxycycline Allergy Intermediate 05/10/21 Yes fentanyl Allergy Intermediate 05/10/21 Yes latex Allergy Intermediate 05/10/21 Yes lidocaine Allergy Intermediate 04/17/21 Yes morphine Allergy Intermediate 05/10/21 Yes nickel Allergy Intermediate 04/17/21 Yes (DARLIN WEST) Physical Exam: PE: Constitutional: Appears older than stated age, well developed, well nourished, no acute distress, non-toxic appearance. Cardiovascular: Heart rate regular rhythm, no murmur. Lungs & Thorax: Bilateral breath sounds clear to auscultation. Skin: Warm, dry, no erythema, no rash, no abrasion, no laceration. Back: No step-offs, no tenderness. Extremities: Left shoulder diffusely tender to palpation, range of motion intact though painful. Bilateral knees tender without swelling, flexion extension intact. Left foot with minor deformity to digit 3 with minimal pain and full range of motion. Neurologic: Alert and oriented x3, normal motor function, normal sensory function, no focal deficits noted. (DARLIN WEST) Current Patient Data: Vital Signs: Vital Signs Date Time Temp Pulse Resp B/P (MAP) Pulse Ox O2 Delivery O2 Flow Rate FiO2 05/10/21 15:20 98.1 82 16 147/79 (101) 97 (DARLIN WEST) Radiology/Procedures: Radiology/Procedures: PROCEDURE: SHOULDER 2+V LEFT Exam: Left shoulder 3 views INDICATION: Trauma TECHNIQUE: Frontal view of the left shoulder with internal and external rotation and transscapular Y views Comparisons: None FINDINGS: Bone mineralization is normal. No acute or healed fractures. Soft tissues are unremarkable. Joint spaces are well-maintained. IMPRESSION: No acute osseous abnormality. Electronically signed by: Jil James MD (05/10/2021 4:13 PM) [facility] PROCEDURE: KNEE BILAT 3V XR KNEE 3 VIEWS History: Trauma. Comparison: Knee radiographs 03/17/2019 Technique: 3 views of the right knee. 3 views of left knee. Findings: Redemonstrated bilateral patellar resection. Postsurgical changes at the distal femur and proximal anterior tibia bilaterally. No acute fracture or dislocation. Mild bilateral medial tibiofemoral compartment osteophytes. No significant knee effusions. No significant anterior knee soft tissue swelling. Impression: 1. No acute osseous abnormality of the bilateral knees. Electronically signed by: Daniel Fox MD (05/10/2021 4:18 PM) [id number] (DARLIN WEST) Heart Score: C/O Chest Pain: No (DARLIN WEST) Course & Med Decision Making: Course & Med Decision Making Pertinent Labs and Imaging studies reviewed. (See chart for details) X-rays ordered of bilateral knees and left shoulder to evaluate for acute f racture or dislocation. Patient is aware that x-ray imaging is limited to bony injury, and will not evaluate soft tissues. At this time, patient reports extreme difficulty obtaining orthopedic follow-up. I placed a page to Dr. Godwin to ensure adequate follow-up with [facility]. Dr. Godwin is agreeable to seeing the patient next week. He has her demographic information so that the scheduler maintenance may call her on Thursday to schedule an appointment for next week. We discussed her difficulty in finding orthopedic care after Dr. Waite leaving the practice. Dr. Godwin verbalizes understanding that the patient is not in need of emergent care today, however it is absolutely necessary that she be seen next week. Patient's third digit on the left foot was alexa taped for stabilization. No acute fractures or dislocations are seen on x-ray films. Patient is instructed to use RICE therapy for pain. She understands that she will be contacted for a follow-up appointment with Dr. Godwin next week. Patient understands and is agreeable to discharge plan. (DARLIN WEST) Course & Med Decision Making I was the Attending physician on the above date of service of this patient. This patient was evaluated, examined, treated, and dispositioned from the emergency department by the mid-level practitioner. Although I was working at the time , no assistance was requested. Electronically signed, Drea Allen DO (DREA ALLEN DO) Kiarra Disclaimer: Kiarra Disclaimer: This electronic medical record was generated, in whole or in part, using a voice recognition dictation system. (DARLIN WEST) Departure Departure: Impression: Primary Impression: Chronic pain in left shoulder Additional Impressions: Bilateral knee pain Qualified Codes: M25.561 - Pain in right knee; M25.562 - Pain in left knee Left foot pain Disposition: HOME / SELF CARE / HOMELESS Condition: STABLE Referrals: PCP,UNKNOWN (PCP) Patient Instructions: RICE - Routine Care for Injuries, [id number], Shoulder Pain, [id number] Additional Instructions: Your x-ray images did not show any fracture or dislocation today. X-rays are limited to bony injury and dislocation, so for further soft tissue evaluation you will need additional imaging from green promotions specialist. As discussed, I spoke with Dr. Godwin with [facility] today. He has your information, and the office should call you on Thursday to schedule an appointment for next week. Please return to the emergency department if you have worsening symptoms. DARLIN WEST May 10, 2021 16:31 DREA ALLEN DO May 11, 2021 06:24
== END 2021-05-10 16:55 | disposition home or self-care (01) ==
LOC: ER 15:13
DX: M25.562 Pain in left knee (principal); M25.561 Pain in right knee; M79.672 Pain in left foot; M25.512 Pain in left shoulder; F17.210 Nicotine dependence, cigarettes, uncomplicated; Z90.49 Acquired absence of other specified parts of digestive tract; Z90.710 Acquired absence of both cervix and uterus; Z98.51 Tubal ligation status
CPT/HCPCS: 73030; 73562; 96372; 99284; J1885